=== PATIENT | male | born 1960 | race Two or more races ===

== ENCOUNTER 2020-03-02 18:32 | Inpatient (IN) | payer MEDICARE, MEDICAID ==
[~2020-03-02] VITALS: Ht 170.2 cm; Wt 95.2 kg
[2020-03-02 19:38] LABS: Basophils # (auto) 0 10 ^3/uL (0-0.2); Basophils % (auto) 0.7 % (0.0-2.0); Eosinophils # (auto) 0 10 ^3/uL (0-0.8); Hematocrit 29.5 % (41.0-53.0); Hemoglobin 9.5 g/dL (13.5-17.5); Lymphocytes # (auto) 0.5 10 ^3/uL (0.4-5.4); Lymphocytes % (auto) 16.6 % (10.0-50.0); Mean Corpuscular Hemoglobin 24.5 pg (28.0-32.0); Mean Corpuscular Hgb Conc. 32.3 g/dL (32.0-36.0); Monocytes # (auto) 0.4 10 ^3/uL (0-1.3); Neutrophils # (auto) 2.2 10 ^3/uL (1.6-8.6); Neutrophils % (auto) 70.7 % (37.0-80.0); Nucleated Red Blood Cells % 0.5 %; Red Blood Cells 3.88 10^6/uL (4.5-5.90); Red Cell Distribution Width 19.4 % (11.8-14.3); White Blood Cell 3.2 10^3/uL (4.4-10.8)
[2020-03-02 19:52] LABS: Albumin 2.5 g/dL (3.4-5.0); Calcium 7.3 mg/dL (8.5-10.1); Magnesium 2.3 mg/dL (1.6-2.6); Potassium 4.6 mmol/L (3.5-5.1)
[2020-03-02 19:59] LABS: BUN/Creatinine Ratio 14.8; Bilirubin, Total 0.7 mg/dL (0.2-1.0)
[2020-03-02 21:51] LABS: INR 2.77 (0.9-1.15)
[2020-03-02 22:02] LABS: Partial Thromboplastin Time 73.1 sec (23.0-31.2)
[2020-03-03] VITALS (8 sets, daily range): BP systolic 94–210; BP diastolic 60–118
[2020-03-03] MEDS ORDERED: LORazepam 2MG/ML-1ML VIAL ONE (01:54)
[2020-03-03] MEDS ORDERED: LORazepam 2MG/ML-1ML VIAL IV ONE (02:00)
[2020-03-03] MEDS ORDERED: ETOMIDATE (2MG/ML) 20ML VIAL IV ONE (02:11)
[2020-03-03] MEDS ORDERED: SUCCINYLCHOLINE CHLORIDE 20 MG/ML 10ML VIAL IV ONE (02:12)
[2020-03-03] MEDS: MIDAZOLAM DRIP 50 mg/50mL 50 ML IV SCH (02:45)
[2020-03-03] MEDS ORDERED: SODIUM BICARBONATE 8.4 % INJ 50ML VIAL IV ONE (04:30)
[2020-03-03] MEDS ORDERED: NITROGLYCERIN 0.4 MG SL TAB SL PRN (05:30)
[2020-03-03] MEDS ORDERED: MORPHINE SULFATE INJECTION 2 MG/ML SYRG IV PRN (05:30)
[2020-03-03] MEDS ORDERED: DEXTROSE (50%) 50ML SYRG IV PRN (05:30)
[2020-03-03] MEDS ORDERED: ONDANSETRON HCL 4 MG/2 ML VIAL IV PRN (05:30)
[2020-03-03] MEDS ORDERED: NOREPINEPHRINE 8 MG/250ML KIT 250 ML IV ONE (05:59)
[2020-03-03] MEDS: NOREPINEPHRINE 8 MG/250ML KIT 250 ML IV SCH (06:00)
[2020-03-03] MEDS: ACCU-CHEK COMFORT CURVE STRIP VI SCH ×3 (06:00→17:27)
[2020-03-03] MEDS ORDERED: ACETAMINOPHEN 650 MG RECT SUPP PR ONE (09:45)
[2020-03-03] MEDS: DOXYCYCLINE 100MG/250ML 250 ML IV SCH ×2 (09:49→18:43)
[2020-03-03] MEDS ORDERED: ENOXAPARIN SOD 40 MG/0.4 ML SYRINGE SC SCH (10:00)
[2020-03-03] MEDS: InsuLIN REG 1unit/0.01ml Soln (100units/ml) SC SCH ×3 (10:00→17:28)
[2020-03-03] MEDS ORDERED: ENOXAPARIN SOD 30 MG/0.3 ML SYRINGE SC SCH (10:00)
[2020-03-03] MEDS: ZINC SULFATE 220mg CAP or TAB PO SCH (10:01)
[2020-03-03] MEDS: PANTOPRAZOLE 40 MG/10 ML VIAL INJ IV SCH (10:01)
[2020-03-03] MEDS: DexAMETHasone SOD PHOS 10MG/1ML VIAL INJ IV SCH (10:01)
[2020-03-03] MEDS ORDERED: cefTRIAXone 1GM/50ML D5W 50 ML IV ONE (11:15)
[2020-03-03] MEDS ORDERED: FUROSEMIDE 40 MG/4 ML VIAL IV ONE (11:15)
[2020-03-03] MEDS ORDERED: REMDESIVIR PER PHARMACY 0 ML IV SCH ×2 (11:30→11:45)
[2020-03-03 11:43] LABS: Magnesium 2.3 mg/dL (1.6-2.6)
[2020-03-03 11:45] LABS: Lactic Acid w/Reflex 3.4 mmol/L (0.4-2.0)
[2020-03-03 12:11] LABS: CRP High Sensitivity 18.1 mg/dL (< 0.3)
[2020-03-03] MEDS: ALBUMIN 25% 100 ML IV SCH ×2 (12:38→20:23)
[2020-03-03 17:14] LABS: Urine Amorphous Crystal FEW /hpf (None Seen); Urine Bacteria FEW /hpf (None Seen); Urine Blood 3+ /uL (Negative); Urine Specific Gravity 1.015 (1.001-1.035); Urine Sperm PRESENT /hpf (None Seen); Urine WBC 1 /hpf (0 - 3)
[2020-03-03] MEDS ORDERED: fentaNYL Drip 2500mCg/250mlNS 250 ML IV ONE (18:20)
[2020-03-03] MEDS: fentaNYL Drip 2500mCg/250mlNS 250 ML IV SCH (18:30)
[2020-03-03 21:55] LABS: Basophils # (auto) 0 10 ^3/uL (0-0.2); Eosinophils # (auto) 0 10 ^3/uL (0-0.8); Lymphocytes # (auto) 0.6 10 ^3/uL (0.4-5.4)
[2020-03-03 21:58] LABS: Basophils % (auto) 0.2 % (0.0-2.0); Eosinophils % (auto) 0.1 % (0.0-7.0); Hematocrit 27.7 % (41.0-53.0); Lymphocytes % (auto) 4.8 % (10.0-50.0); Mean Corpuscular Hemoglobin 24.1 pg (28.0-32.0); Mean Corpuscular Hgb Conc. 32.5 g/dL (32.0-36.0); Mean Corpuscular Volume 74.3 fL (80.0-100.0); Monocytes # (auto) 0.5 10 ^3/uL (0-1.3); Neutrophils # (auto) 10.6 10 ^3/uL (1.6-8.6); Neutrophils % (auto) 90.9 % (37.0-80.0); Red Blood Cells 3.72 10^6/uL (4.5-5.90); Red Cell Distribution Width 19.5 % (11.8-14.3); White Blood Cell 11.6 10^3/uL (4.4-10.8)
[2020-03-03 22:16] LABS: BUN/Creatinine Ratio 14.2; Calcium 7.9 mg/dL (8.5-10.1); Potassium 4.7 mmol/L (3.5-5.1)
[2020-03-03 22:33] LABS: Partial Thromboplastin Time 89.6 sec (23.0-31.2)
[2020-03-03 22:34] LABS: INR 7.13 (0.9-1.15)
[2020-03-04] VITALS (9 sets, daily range): BP systolic 92–117; BP diastolic 55–66
[2020-03-04] MEDS: MIDAZOLAM DRIP 50 mg/50mL 50 ML IV SCH ×5 (00:15→23:30)
[2020-03-04] MEDS: ALBUMIN 25% 100 ML IV SCH (03:25)
[2020-03-04 05:47] LABS: Basophils # (auto) 0 10 ^3/uL (0-0.2); Eosinophils # (auto) 0 10 ^3/uL (0-0.8); Hemoglobin 8.9 g/dL (13.5-17.5); Monocytes # (auto) 0.4 10 ^3/uL (0-1.3)
[2020-03-04 05:50] LABS: Basophils % (auto) 0.1 % (0.0-2.0); Hematocrit 27.8 % (41.0-53.0); Lymphocytes # (auto) 0.6 10 ^3/uL (0.4-5.4); Mean Corpuscular Hgb Conc. 32.2 g/dL (32.0-36.0); Mean Corpuscular Volume 74.6 fL (80.0-100.0); Monocytes % (auto) 3.6 % (0.0-12.0); Neutrophils # (auto) 10.6 10 ^3/uL (1.6-8.6); Neutrophils % (auto) 91.3 % (37.0-80.0); Nucleated Red Blood Cells % 0.3 %; Red Blood Cells 3.72 10^6/uL (4.5-5.90); White Blood Cell 11.6 10^3/uL (4.4-10.8)
[2020-03-04] MEDS: NOREPINEPHRINE 8 MG/250ML KIT 250 ML IV SCH (06:00)
[2020-03-04] MEDS: ACCU-CHEK COMFORT CURVE STRIP VI SCH ×5 (06:00→17:15)
[2020-03-04] MEDS: InsuLIN REG 1unit/0.01ml Soln (100units/ml) SC SCH ×4 (06:00→17:16)
[2020-03-04 06:10] LABS: Potassium 4.8 mmol/L (3.5-5.1)
[2020-03-04 06:19] LABS: Albumin 2.5 g/dL (3.4-5.0); BUN/Creatinine Ratio 13.7; Bilirubin, Total 1.3 mg/dL (0.2-1.0); Calcium 7.9 mg/dL (8.5-10.1); INR 6.3 (0.9-1.15); Total Protein 7.2 g/dL (6.4-8.2)
[2020-03-04] MEDS: DOXYCYCLINE 100MG/250ML 250 ML IV SCH ×2 (06:39→17:15)
[2020-03-04] MEDS: cefTRIAXone 1GM/50ML D5W 50 ML IV SCH (09:41)
[2020-03-04] MEDS: DexAMETHasone SOD PHOS 10MG/1ML VIAL INJ IV SCH (09:42)
[2020-03-04] MEDS: PANTOPRAZOLE 40 MG/10 ML VIAL INJ IV SCH (09:42)
[2020-03-04] MEDS: ZINC SULFATE 220mg CAP or TAB PO SCH (09:42)
[2020-03-04] MEDS: fentaNYL Drip 2500mCg/250mlNS 250 ML IV SCH (16:23)
[2020-03-04] MEDS ORDERED: ALBUMIN 5% 250 ML IV ONE (19:00)
[2020-03-05] MEDS: InsuLIN REG 1unit/0.01ml Soln (100units/ml) SC SCH ×5 (01:27→23:35)
[2020-03-05 02:22] VITALS: BP 99/60
[2020-03-05] MEDS: MIDAZOLAM DRIP 50 mg/50mL 50 ML IV SCH ×4 (02:30→23:45)
[2020-03-05 05:45] LABS: Basophils # (auto) 0 10 ^3/uL (0-0.2); Basophils % (auto) 0.1 % (0.0-2.0); Eosinophils # (auto) 0 10 ^3/uL (0-0.8); Eosinophils % (auto) 0.1 % (0.0-7.0); Hemoglobin 8.8 g/dL (13.5-17.5); Lymphocytes # (auto) 0.5 10 ^3/uL (0.4-5.4); Mean Corpuscular Hemoglobin 24.2 pg (28.0-32.0); Mean Corpuscular Hgb Conc. 32.7 g/dL (32.0-36.0); Monocytes # (auto) 0.4 10 ^3/uL (0-1.3)
[2020-03-05 05:47] LABS: Hematocrit 26.8 % (41.0-53.0); Lymphocytes % (auto) 5.7 % (10.0-50.0); Monocytes % (auto) 4.2 % (0.0-12.0); Neutrophils # (auto) 7.8 10 ^3/uL (1.6-8.6); Neutrophils % (auto) 89.9 % (37.0-80.0); Nucleated Red Blood Cells % 0.4 %; Red Blood Cells 3.62 10^6/uL (4.5-5.90); Red Cell Distribution Width 19.9 % (11.8-14.3); White Blood Cell 8.7 10^3/uL (4.4-10.8)
[2020-03-05 05:48] LABS: Albumin 2.5 g/dL (3.4-5.0); Calcium 7.8 mg/dL (8.5-10.1); Potassium 5.2 mmol/L (3.5-5.1)
[2020-03-05 05:58] LABS: BUN/Creatinine Ratio 13.8; Bilirubin, Total 1.5 mg/dL (0.2-1.0); Total Protein 7.3 g/dL (6.4-8.2)
[2020-03-05 06:00] VITALS: BP 97/60
[2020-03-05] MEDS: NOREPINEPHRINE 8 MG/250ML KIT 250 ML IV SCH (06:00)
[2020-03-05] MEDS: ACCU-CHEK COMFORT CURVE STRIP VI SCH ×4 (06:00→23:36)
[2020-03-05] MEDS: DOXYCYCLINE 100MG/250ML 250 ML IV SCH ×2 (06:03→18:16)
[2020-03-05 06:10] LABS: INR > 8.0 (0.9-1.15); Partial Thromboplastin Time 111.5 sec (23.0-31.2)
[2020-03-05] MEDS: fentaNYL Drip 2500mCg/250mlNS 250 ML IV SCH ×2 (07:10→23:44)
[2020-03-05] MEDS ORDERED: SODIUM ZIRCONIUM CYCL 10 GM PAK GT ONE (09:45)
[2020-03-05] MEDS ORDERED: SODIUM BICARBONATE 8.4 % INJ 50ML VIAL IV ONE (09:45)
[2020-03-05] MEDS ORDERED: SODIUM BICARBONATE 50ML VIAL 100 ML in SOD CHL 0.45% 1,000 ML IV SCH (09:45)
[2020-03-05] MEDS: cefTRIAXone 1GM/50ML D5W 50 ML IV SCH (09:45)
[2020-03-05] MEDS: ZINC SULFATE 220mg CAP or TAB PO SCH (10:00)
[2020-03-05] MEDS ORDERED: ALBUTEROL SULF 2.5 MG/0.5ML(0.5%) NEB SOLN NEB ONE (10:00)
[2020-03-05] MEDS ORDERED: InsuLIN REG 1unit/0.01ml Soln (100units/ml) IV ONE (10:00)
[2020-03-05 10:04] VITALS: BP 102/63
[2020-03-05] MEDS: DexAMETHasone SOD PHOS 10MG/1ML VIAL INJ IV SCH (10:25)
[2020-03-05] MEDS ORDERED: PHYTONADIONE (VIT K)10 MG/ML 1ML VIAL SUBCUT ONE (10:30)
[2020-03-05] MEDS: PANTOPRAZOLE 40 MG/10 ML VIAL INJ IV SCH ×2 (10:30→22:49)
[2020-03-05] MEDS ORDERED: phytonadione 10 MG in SODIUM CHL 0.9% 50 ML IV ONE (11:30)
[2020-03-05] MEDS: SODIUM BICARBONATE 50ML VIAL 150 ML in D5W 5% 1,000 ML IV SCH ×2 (11:41→20:27)
[2020-03-05] MEDS ORDERED: FUROSEMIDE 20 MG/2 ML VIAL IV ONE (12:00)
[2020-03-05 13:24] LABS: Albumin 2.4 g/dL (3.4-5.0); Calcium 7.6 mg/dL (8.5-10.1); Potassium 4.7 mmol/L (3.5-5.1)
[2020-03-05 13:36] LABS: BUN/Creatinine Ratio 14.5; Bilirubin, Total 1.5 mg/dL (0.2-1.0); Total Protein 7.2 g/dL (6.4-8.2)
[2020-03-05 14:00] VITALS: BP 111/66
[2020-03-05] MEDS: SODIUM ZIRCONIUM CYCL 10 GM PAK GT SCH (18:15)
[2020-03-05 19:29] VITALS: BP 125/70
[2020-03-05 22:39] VITALS: BP 116/70
[2020-03-06] VITALS (8 sets, daily range): BP systolic 128–145; BP diastolic 73–86
[2020-03-06] MEDS: NOREPINEPHRINE 8 MG/250ML KIT 250 ML IV SCH (02:06)
[2020-03-06] MEDS: SODIUM ZIRCONIUM CYCL 10 GM PAK GT SCH ×2 (02:48→09:39)
[2020-03-06 04:27] LABS: Basophils # (auto) 0 10 ^3/uL (0-0.2); Eosinophils # (auto) 0 10 ^3/uL (0-0.8); Eosinophils % (auto) 0.1 % (0.0-7.0); Nucleated Red Blood Cells % 0.2 %
[2020-03-06 04:54] LABS: INR 1.43 (0.9-1.15); Partial Thromboplastin Time 45.3 sec (23.0-31.2)
[2020-03-06 04:57] LABS: Basophils % (auto) 0.1 % (0.0-2.0); Hematocrit 24.2 % (41.0-53.0); Hemoglobin 8.1 g/dL (13.5-17.5); Lymphocytes # (auto) 0.2 10 ^3/uL (0.4-5.4); Lymphocytes % (auto) 2.1 % (10.0-50.0); Mean Corpuscular Hemoglobin 24.5 pg (28.0-32.0); Mean Corpuscular Hgb Conc. 33.4 g/dL (32.0-36.0); Mean Corpuscular Volume 73.5 fL (80.0-100.0); Monocytes # (auto) 0.4 10 ^3/uL (0-1.3); Monocytes % (auto) 4.5 % (0.0-12.0); Neutrophils # (auto) 8.2 10 ^3/uL (1.6-8.6); Neutrophils % (auto) 93.2 % (37.0-80.0); Red Blood Cells 3.29 10^6/uL (4.5-5.90); Red Cell Distribution Width 19.7 % (11.8-14.3); White Blood Cell 8.8 10^3/uL (4.4-10.8)
[2020-03-06] MEDS: DOXYCYCLINE 100MG/250ML 250 ML IV SCH ×2 (05:05→18:24)
[2020-03-06 05:10] LABS: Potassium 4.5 mmol/L (3.5-5.1)
[2020-03-06 05:20] LABS: Albumin 2.4 g/dL (3.4-5.0); BUN/Creatinine Ratio 16.8; Bilirubin, Total 1.6 mg/dL (0.2-1.0); Calcium 7.8 mg/dL (8.5-10.1); Total Protein 7.3 g/dL (6.4-8.2)
[2020-03-06] MEDS: ACCU-CHEK COMFORT CURVE STRIP VI SCH ×3 (06:30→18:24)
[2020-03-06] MEDS: InsuLIN REG 1unit/0.01ml Soln (100units/ml) SC SCH ×3 (06:30→23:54)
[2020-03-06] MEDS: cefTRIAXone 1GM/50ML D5W 50 ML IV SCH (09:00)
[2020-03-06] MEDS: SODIUM BICARBONATE 50ML VIAL 150 ML in D5W 5% 1,000 ML IV SCH ×2 (09:38→20:52)
[2020-03-06] MEDS: PANTOPRAZOLE 40 MG/10 ML VIAL INJ IV SCH ×2 (09:39→22:00)
[2020-03-06] MEDS: ZINC SULFATE 220mg CAP or TAB PO SCH (09:39)
[2020-03-06] MEDS ORDERED: HEPARIN SODIUM (PORCINE) 5000 UNITS/ML 1ML VIAL IV ONE (15:00)
[2020-03-06 17:59] LABS: Basophils # (auto) 0 10 ^3/uL (0-0.2); Basophils % (auto) 0.1 % (0.0-2.0); Eosinophils # (auto) 0 10 ^3/uL (0-0.8); Hemoglobin 8.2 g/dL (13.5-17.5); Lymphocytes # (auto) 0.4 10 ^3/uL (0.4-5.4); Monocytes # (auto) 0.4 10 ^3/uL (0-1.3); Neutrophils # (auto) 8.5 10 ^3/uL (1.6-8.6); White Blood Cell 9.3 10^3/uL (4.4-10.8)
[2020-03-06] MEDS: HEPARIN DRIP/D5W 100UNITS/ML 250 ML IV SCH (18:00)
[2020-03-06 18:01] LABS: Lymphocytes % (auto) 4.6 % (10.0-50.0); Mean Corpuscular Hemoglobin 24.3 pg (28.0-32.0); Mean Corpuscular Hgb Conc. 32.8 g/dL (32.0-36.0); Monocytes % (auto) 4.3 % (0.0-12.0); Nucleated Red Blood Cells % 0.3 %; Red Blood Cells 3.39 10^6/uL (4.5-5.90); Red Cell Distribution Width 19.8 % (11.8-14.3)
[2020-03-07] VITALS (46 sets, daily range): BP systolic 99–156; BP diastolic 7–78
[2020-03-07] MEDS: ACETAMINOPHEN 325 MG TAB PO PRN (01:05)
[2020-03-07 01:20] LABS: INR 1.56 (0.9-1.15)
[2020-03-07 01:22] LABS: Partial Thromboplastin Time 125.5 sec (23.0-31.2)
[2020-03-07] MEDS: MIDAZOLAM DRIP 50 mg/50mL 50 ML IV SCH ×4 (04:11→22:00)
[2020-03-07] MEDS: HEPARIN DRIP/D5W 100UNITS/ML 250 ML IV SCH ×2 (04:58→16:50)
[2020-03-07] MEDS: NOREPINEPHRINE 8 MG/250ML KIT 250 ML IV SCH (06:00)
[2020-03-07] MEDS: InsuLIN REG 1unit/0.01ml Soln (100units/ml) SC SCH ×3 (06:23→18:22)
[2020-03-07] MEDS: ACCU-CHEK COMFORT CURVE STRIP VI SCH ×4 (06:24→18:20)
[2020-03-07] MEDS: DOXYCYCLINE 100MG/250ML 250 ML IV SCH ×2 (06:59→18:20)
[2020-03-07 07:50] LABS: Basophils # (auto) 0 10 ^3/uL (0-0.2); Eosinophils # (auto) 0 10 ^3/uL (0-0.8); Mean Corpuscular Hemoglobin 24.5 pg (28.0-32.0); Nucleated Red Blood Cells % 0.6 %
[2020-03-07 07:52] LABS: Hematocrit 24.3 % (41.0-53.0); Lymphocytes # (auto) 0.4 10 ^3/uL (0.4-5.4); Lymphocytes % (auto) 4.5 % (10.0-50.0); Mean Corpuscular Hgb Conc. 33.1 g/dL (32.0-36.0); Mean Corpuscular Volume 74.1 fL (80.0-100.0); Monocytes # (auto) 0.4 10 ^3/uL (0-1.3); Monocytes % (auto) 4.7 % (0.0-12.0); Neutrophils # (auto) 8.7 10 ^3/uL (1.6-8.6); Neutrophils % (auto) 90.8 % (37.0-80.0); Red Blood Cells 3.28 10^6/uL (4.5-5.90); Red Cell Distribution Width 19.5 % (11.8-14.3); White Blood Cell 9.6 10^3/uL (4.4-10.8)
[2020-03-07 08:15] LABS: INR 1.59 (0.9-1.15); Partial Thromboplastin Time 69.7 sec (23.0-31.2)
[2020-03-07 08:19] LABS: BUN/Creatinine Ratio 20.4; Bilirubin, Total 2.9 mg/dL (0.2-1.0); Total Protein 7.1 g/dL (6.4-8.2)
[2020-03-07] MEDS: cefTRIAXone 1GM/50ML D5W 50 ML IV SCH (09:09)
[2020-03-07] MEDS: ZINC SULFATE 220mg CAP or TAB PO SCH (10:00)
[2020-03-07] MEDS: PANTOPRAZOLE 40 MG/10 ML VIAL INJ IV SCH ×2 (10:00→22:30)
[2020-03-07] MEDS: fentaNYL Drip 2500mCg/250mlNS 250 ML IV SCH ×2 (11:34→21:25)
[2020-03-07] MEDS: SODIUM CHLORIDE 0.9% 1,000 ML IV SCH ×2 (12:13→21:01)
[2020-03-07 15:38] LABS: INR 1.67 (0.9-1.15)
[2020-03-07 15:56] LABS: Partial Thromboplastin Time 74.3 sec (23.0-31.2)
[2020-03-07 21:51] LABS: INR 1.76 (0.9-1.15)
[2020-03-07 21:56] LABS: Partial Thromboplastin Time > 139.0 sec (23.0-31.2)
[2020-03-08] MEDS: ACCU-CHEK COMFORT CURVE STRIP VI SCH ×5 (00:11→23:25)
[2020-03-08] MEDS: InsuLIN REG 1unit/0.01ml Soln (100units/ml) SC SCH ×5 (00:14→23:25)
[2020-03-08 02:00] VITALS: BP 145/74
[2020-03-08] MEDS: MIDAZOLAM DRIP 50 mg/50mL 50 ML IV SCH ×3 (02:25→20:39)
[2020-03-08] MEDS: NOREPINEPHRINE 8 MG/250ML KIT 250 ML IV SCH ×2 (03:55→23:49)
[2020-03-08] MEDS: SODIUM CHLORIDE 0.9% 1,000 ML IV SCH ×2 (04:13→11:17)
[2020-03-08] MEDS: hydrALAZINE HCL 20 MG/ML VL IV PRN (04:19)
[2020-03-08 05:31] LABS: Red Blood Cells 3.64 10^6/uL (4.5-5.90); White Blood Cell 9.3 10^3/uL (4.4-10.8)
[2020-03-08 05:33] LABS: Hematocrit 26.9 % (41.0-53.0); Mean Corpuscular Hemoglobin 24.8 pg (28.0-32.0); Mean Corpuscular Hgb Conc. 33.5 g/dL (32.0-36.0); Red Cell Distribution Width 19.8 % (11.8-14.3)
[2020-03-08 05:42] LABS: Basophils % (manual) 0 (0.0-2.0); Blast Cells 0; Eosinophils % (manual) 0 (0-7); Metamyelocytes % 0; Myelocytes % 0; Promyelocytes % 0; Reactive Lymphocytes 0
[2020-03-08] MEDS: ACETAMINOPHEN 325 MG TAB PO PRN ×2 (05:43→20:40)
[2020-03-08] MEDS: HEPARIN DRIP/D5W 100UNITS/ML 250 ML IV SCH ×3 (05:57→23:46)
[2020-03-08 05:58] LABS: Calcium 8.2 mg/dL (8.5-10.1); Potassium 4.1 mmol/L (3.5-5.1)
[2020-03-08 06:00] LABS: BUN/Creatinine Ratio 22.4
[2020-03-08 06:20] LABS: INR 1.74 (0.9-1.15)
[2020-03-08 07:10] VITALS: BP 126/68
[2020-03-08 07:50] LABS: Band Neutrophils % (manual) 1; Lymphocytes % (manual) 2 (10.0-50.0); Monocytes % (manual) 3 (0-12)
[2020-03-08] MEDS: cefTRIAXone 1GM/50ML D5W 50 ML IV SCH (08:54)
[2020-03-08] MEDS: PANTOPRAZOLE 40 MG/10 ML VIAL INJ IV SCH ×2 (10:00→20:39)
[2020-03-08] MEDS: ZINC SULFATE 220mg CAP or TAB PO SCH (10:00)
[2020-03-08] MEDS ORDERED: Glucerna 1.2 Cal 1Liter BOTTLE GT SCH (11:00)
[2020-03-08] MEDS: FREE WATER GT SCH ×3 (12:00→23:18)
[2020-03-08 14:14] VITALS: BP 133/71
[2020-03-08 18:28] VITALS: BP 128/68
[2020-03-08 22:35] VITALS: BP 116/65
[2020-03-09 02:24] VITALS: BP 117/63
[2020-03-09] MEDS: ACCU-CHEK COMFORT CURVE STRIP VI SCH ×3 (05:32→18:10)
[2020-03-09] MEDS: FREE WATER GT SCH ×4 (05:32→22:54)
[2020-03-09] MEDS: InsuLIN REG 1unit/0.01ml Soln (100units/ml) SC SCH ×4 (05:33→23:11)
[2020-03-09 05:50] VITALS: BP 130/72
[2020-03-09] MEDS ORDERED: dilTIAZem 25 MG/5 ML VIAL IV ONE (06:45)
[2020-03-09] MEDS: SODIUM CHLORIDE 0.9% 1,000 ML IV SCH (07:00)
[2020-03-09 07:20] LABS: White Blood Cell 7.2 10^3/uL (4.4-10.8)
[2020-03-09 07:23] LABS: Hematocrit 26.1 % (41.0-53.0); Hemoglobin 8.5 g/dL (13.5-17.5); Mean Corpuscular Hemoglobin 24.4 pg (28.0-32.0); Mean Corpuscular Hgb Conc. 32.7 g/dL (32.0-36.0); Mean Corpuscular Volume 74.7 fL (80.0-100.0); Red Blood Cells 3.49 10^6/uL (4.5-5.90)
[2020-03-09 07:34] LABS: INR 2.51 (0.9-1.15); Partial Thromboplastin Time 50.2 sec (23.0-31.2)
[2020-03-09 07:37] LABS: Potassium 3.9 mmol/L (3.5-5.1)
[2020-03-09 07:42] LABS: Red Cell Distribution Width 20.1 % (11.8-14.3)
[2020-03-09 07:44] LABS: Basophils % (manual) 0 (0.0-2.0); Blast Cells 0; Eosinophils % (manual) 0 (0-7); Promyelocytes % 0; Reactive Lymphocytes 0
[2020-03-09 07:45] LABS: BUN/Creatinine Ratio 24.7; Calcium 8.4 mg/dL (8.5-10.1)
[2020-03-09 08:16] LABS: Band Neutrophils % (manual) 1; Lymphocytes % (manual) 9 (10.0-50.0); Metamyelocytes % 2; Monocytes % (manual) 1 (0-12); Myelocytes % 1
[2020-03-09] MEDS: PANTOPRAZOLE 40 MG/10 ML VIAL INJ IV SCH ×2 (09:01→21:24)
[2020-03-09] MEDS: cefTRIAXone 1GM/50ML D5W 50 ML IV SCH (09:01)
[2020-03-09] MEDS: ZINC SULFATE 220mg CAP or TAB PO SCH (09:01)
[2020-03-09] MEDS ORDERED: NOREPINEPHRINE 8 MG/250ML KIT 250 ML IV ONE ×2 (10:20→10:23)
[2020-03-09] MEDS: NOREPINEPHRINE 8 MG/250ML KIT 250 ML IV SCH (10:30)
[2020-03-09] MEDS ORDERED: AMIODARONE HCL (50 MG/ ML) 3 ML VIAL IV ONE ×2 (10:33)
[2020-03-09] MEDS ORDERED: AMIODARONE 450mg/250ml AE 250 ML IV ONE (10:33)
[2020-03-09 13:22] VITALS: BP 128/74
[2020-03-09 17:46] LABS: INR 2.46 (0.9-1.15)
[2020-03-09 18:10] VITALS: BP 100/57
[2020-03-09] MEDS: fentaNYL Drip 2500mCg/250mlNS 250 ML IV SCH (18:22)
[2020-03-09] MEDS ORDERED: AMIODARONE HCL 150 MG in D5W 5% 100 ML IV ONE (18:45)
[2020-03-09] MEDS ORDERED: AMIODARONE 450mg/250ml AE 250 ML IV SCH (18:45)
[2020-03-09 21:54] LABS: INR 2.87 (0.9-1.15)
[2020-03-09 22:20] VITALS: BP 126/48
[2020-03-09] MEDS: ACETAMINOPHEN 325 MG TAB PO PRN (22:54)
[2020-03-10] MEDS: ACCU-CHEK COMFORT CURVE STRIP VI SCH ×5 (00:29→23:53)
[2020-03-10] MEDS: MIDAZOLAM DRIP 50 mg/50mL 50 ML IV SCH (00:29)
[2020-03-10] MEDS: AMIODARONE 450mg/250ml AE 250 ML IV SCH ×2 (00:29→18:30)
[2020-03-10] MEDS: SODIUM CHLORIDE 0.9% 1,000 ML IV SCH ×2 (00:30→23:18)
[2020-03-10] MEDS: HEPARIN DRIP/D5W 100UNITS/ML 250 ML IV SCH ×2 (00:30→11:30)
[2020-03-10 01:55] VITALS: BP 147/61
[2020-03-10 04:45] LABS: Hemoglobin 8.1 g/dL (13.5-17.5); Red Blood Cells 3.32 10^6/uL (4.5-5.90)
[2020-03-10 04:50] LABS: Hematocrit 24.7 % (41.0-53.0); Mean Corpuscular Hemoglobin 24.4 pg (28.0-32.0); Mean Corpuscular Hgb Conc. 32.8 g/dL (32.0-36.0); Mean Corpuscular Volume 74.4 fL (80.0-100.0); White Blood Cell 9.3 10^3/uL (4.4-10.8)
[2020-03-10] MEDS: FREE WATER GT SCH ×4 (05:03→23:54)
[2020-03-10] MEDS: InsuLIN REG 1unit/0.01ml Soln (100units/ml) SC SCH ×3 (05:04→23:54)
[2020-03-10 05:06] LABS: INR 3.24 (0.9-1.15); Partial Thromboplastin Time 50.2 sec (23.0-31.2)
[2020-03-10 05:12] LABS: Potassium 4.1 mmol/L (3.5-5.1)
[2020-03-10 05:18] LABS: Albumin 1.7 g/dL (3.4-5.0); Bilirubin, Total 8.2 mg/dL (0.2-1.0); Calcium 8.7 mg/dL (8.5-10.1)
[2020-03-10 06:04] LABS: Red Cell Distribution Width 20.3 % (11.8-14.3)
[2020-03-10 06:05] VITALS: BP 134/66
[2020-03-10 06:05] LABS: Basophils % (manual) 0 (0.0-2.0); Blast Cells 0; Metamyelocytes % 0; Myelocytes % 0; Promyelocytes % 0; Reactive Lymphocytes 0
[2020-03-10 08:36] LABS: Band Neutrophils % (manual) 10; Eosinophils % (manual) 1 (0-7); Lymphocytes % (manual) 7 (10.0-50.0); Monocytes % (manual) 4 (0-12)
[2020-03-10] MEDS: ZINC SULFATE 220mg CAP or TAB PO SCH (11:53)
[2020-03-10] MEDS: PANTOPRAZOLE 40 MG/10 ML VIAL INJ IV SCH ×2 (11:53→22:11)
[2020-03-10] MEDS: cefTRIAXone 1GM/50ML D5W 50 ML IV SCH (11:53)
[2020-03-10 15:36] VITALS: BP 122/59
[2020-03-10] MEDS: fentaNYL Drip 2500mCg/250mlNS 250 ML IV SCH (18:15)
[2020-03-10 18:40] VITALS: BP 126/65
[2020-03-10] MEDS: NOREPINEPHRINE 8 MG/250ML KIT 250 ML IV SCH (18:45)
[2020-03-10 22:10] VITALS: BP 116/62
[2020-03-10] MEDS: METOCLOPRAMIDE HCL 5MG/ml INJ 2ml VIAL IV SCH (22:11)
[2020-03-11 02:10] VITALS: BP 116/53
[2020-03-11] MEDS: MIDAZOLAM DRIP 50 mg/50mL 50 ML IV SCH ×3 (02:21→17:40)
[2020-03-11 05:51] VITALS: BP 128/67
[2020-03-11 06:01] LABS: Basophils # (auto) 0 10 ^3/uL (0-0.2); Basophils % (auto) 0.4 % (0.0-2.0); Eosinophils # (auto) 0.1 10 ^3/uL (0-0.8); Eosinophils % (auto) 1.3 % (0.0-7.0); Hematocrit 22.6 % (41.0-53.0); Hemoglobin 7.5 g/dL (13.5-17.5); Lymphocytes # (auto) 0.7 10 ^3/uL (0.4-5.4); Lymphocytes % (auto) 6.8 % (10.0-50.0); Mean Corpuscular Hemoglobin 24.6 pg (28.0-32.0); Mean Corpuscular Hgb Conc. 33.2 g/dL (32.0-36.0); Monocytes # (auto) 0.6 10 ^3/uL (0-1.3); Monocytes % (auto) 5.7 % (0.0-12.0); Neutrophils # (auto) 8.8 10 ^3/uL (1.6-8.6); Neutrophils % (auto) 85.8 % (37.0-80.0); Nucleated Red Blood Cells % 0.2 %; Red Blood Cells 3.06 10^6/uL (4.5-5.90); Red Cell Distribution Width 19.9 % (11.8-14.3); White Blood Cell 10.3 10^3/uL (4.4-10.8)
[2020-03-11] MEDS: ACCU-CHEK COMFORT CURVE STRIP VI SCH ×3 (06:05→18:12)
[2020-03-11] MEDS: METOCLOPRAMIDE HCL 5MG/ml INJ 2ml VIAL IV SCH ×3 (06:05→22:46)
[2020-03-11 06:06] LABS: Albumin 1.5 g/dL (3.4-5.0); Calcium 8.5 mg/dL (8.5-10.1); Potassium 4.5 mmol/L (3.5-5.1)
[2020-03-11 06:09] LABS: BUN/Creatinine Ratio 26.8; Bilirubin, Total 6.7 mg/dL (0.2-1.0); Total Protein 6.8 g/dL (6.4-8.2)
[2020-03-11] MEDS: HEPARIN DRIP/D5W 100UNITS/ML 250 ML IV SCH ×2 (06:12→20:06)
[2020-03-11] MEDS: FREE WATER GT SCH ×3 (06:13→18:11)
[2020-03-11] MEDS: InsuLIN REG 1unit/0.01ml Soln (100units/ml) SC SCH ×3 (06:13→18:12)
[2020-03-11 07:06] LABS: INR 3.56 (0.9-1.15); Partial Thromboplastin Time 67.8 sec (23.0-31.2)
[2020-03-11] MEDS: AMIODARONE 450mg/250ml AE 250 ML IV SCH ×2 (08:39→21:45)
[2020-03-11] MEDS ORDERED: SODIUM CHL 0.9% 1000 ML BAG XX ONE (10:00)
[2020-03-11] MEDS: cefTRIAXone 1GM/50ML D5W 50 ML IV SCH (10:17)
[2020-03-11] MEDS: PANTOPRAZOLE 40 MG/10 ML VIAL INJ IV SCH ×2 (10:18→22:46)
[2020-03-11] MEDS: DexAMETHasone SOD PHOS 10MG/1ML VIAL INJ IV SCH (10:18)
[2020-03-11] MEDS: ZINC SULFATE 220mg CAP or TAB PO SCH (10:18)
[2020-03-11] MEDS: ACETAMINOPHEN 325 MG TAB PO PRN (17:57)
[2020-03-11 18:10] VITALS: BP 125/70
[2020-03-11] MEDS: NOREPINEPHRINE 8 MG/250ML KIT 250 ML IV SCH (18:45)
[2020-03-11 22:10] VITALS: BP 107/62
[2020-03-12] VITALS (9 sets, daily range): BP systolic 103–133; BP diastolic 52–66
[2020-03-12] MEDS: ACCU-CHEK COMFORT CURVE STRIP VI SCH ×4 (00:53→18:00)
[2020-03-12] MEDS: InsuLIN REG 1unit/0.01ml Soln (100units/ml) SC SCH ×4 (00:59→18:00)
[2020-03-12 05:23] LABS: Basophils # (auto) 0.1 10 ^3/uL (0-0.2); Eosinophils # (auto) 0.1 10 ^3/uL (0-0.8); Mean Corpuscular Volume 74.3 fL (80.0-100.0); Nucleated Red Blood Cells % 0.1 %
[2020-03-12 05:25] LABS: Basophils % (auto) 0.8 % (0.0-2.0); Eosinophils % (auto) 1.1 % (0.0-7.0); Hematocrit 19.7 % (41.0-53.0); Lymphocytes # (auto) 0.9 10 ^3/uL (0.4-5.4); Lymphocytes % (auto) 7.8 % (10.0-50.0); Mean Corpuscular Hgb Conc. 32.3 g/dL (32.0-36.0); Monocytes # (auto) 0.6 10 ^3/uL (0-1.3); Monocytes % (auto) 5.6 % (0.0-12.0); Neutrophils # (auto) 9.5 10 ^3/uL (1.6-8.6); Neutrophils % (auto) 84.7 % (37.0-80.0); Red Blood Cells 2.66 10^6/uL (4.5-5.90); Red Cell Distribution Width 19.7 % (11.8-14.3); White Blood Cell 11.2 10^3/uL (4.4-10.8)
[2020-03-12 05:42] LABS: Hemoglobin 6.4 g/dL (13.5-17.5)
[2020-03-12 05:43] LABS: Albumin 1.4 g/dL (3.4-5.0); Calcium 8.2 mg/dL (8.5-10.1); Potassium 4.7 mmol/L (3.5-5.1)
[2020-03-12 05:45] LABS: BUN/Creatinine Ratio 27.6
[2020-03-12] MEDS: FREE WATER GT SCH ×4 (05:47→18:00)
[2020-03-12 05:48] LABS: Bilirubin, Total 4.4 mg/dL (0.2-1.0); Total Protein 6.9 g/dL (6.4-8.2)
[2020-03-12 06:08] LABS: Partial Thromboplastin Time 51.1 sec (23.0-31.2)
[2020-03-12] MEDS: METOCLOPRAMIDE HCL 5MG/ml INJ 2ml VIAL IV SCH ×3 (06:08→22:00)
[2020-03-12 06:30] LABS: INR 4.26 (0.9-1.15)
[2020-03-12] MEDS: cefTRIAXone 1GM/50ML D5W 50 ML IV SCH (09:00)
[2020-03-12] MEDS: MIDAZOLAM DRIP 50 mg/50mL 50 ML IV SCH (09:46)
[2020-03-12] MEDS: PANTOPRAZOLE 40 MG/10 ML VIAL INJ IV SCH ×2 (09:52→22:00)
[2020-03-12] MEDS: ZINC SULFATE 220mg CAP or TAB PO SCH (09:52)
[2020-03-12] MEDS: DexAMETHasone SOD PHOS 10MG/1ML VIAL INJ IV SCH (09:52)
[2020-03-12] MEDS: HEPARIN DRIP/D5W 100UNITS/ML 250 ML IV SCH ×2 (10:00→23:54)
[2020-03-12 10:34] LABS: Hepatitis A Ab IgM Negative; Hepatitis B Core IgM Negative; Hepatitis B Surface Antigen Negative (Negative)
[2020-03-12 10:35] LABS: Hepatitis C Antibody Reactive (Negative)
[2020-03-12] MEDS: AMIODARONE 450mg/250ml AE 250 ML IV SCH (12:45)
[2020-03-12] MEDS: fentaNYL Drip 2500mCg/250mlNS 250 ML IV SCH (18:15)
[2020-03-13] VITALS (11 sets, daily range): BP systolic 130–155; BP diastolic 56–74
[2020-03-13] MEDS: InsuLIN REG 1unit/0.01ml Soln (100units/ml) SC SCH ×4 (00:05→18:00)
[2020-03-13] MEDS: AMIODARONE 450mg/250ml AE 250 ML IV SCH (05:16)
[2020-03-13] MEDS: ACCU-CHEK COMFORT CURVE STRIP VI SCH ×4 (06:00→18:00)
[2020-03-13] MEDS: FREE WATER GT SCH ×3 (06:00→12:00)
[2020-03-13] MEDS: METOCLOPRAMIDE HCL 5MG/ml INJ 2ml VIAL IV SCH ×3 (06:25→22:11)
[2020-03-13] MEDS: fentaNYL Drip 2500mCg/250mlNS 250 ML IV SCH ×2 (06:47→23:00)
[2020-03-13 06:48] LABS: Basophils # (auto) 0 10 ^3/uL (0-0.2); Basophils % (auto) 0.3 % (0.0-2.0); Eosinophils # (auto) 0 10 ^3/uL (0-0.8); Lymphocytes # (auto) 0.6 10 ^3/uL (0.4-5.4); Mean Corpuscular Hemoglobin 24.8 pg (28.0-32.0); Monocytes # (auto) 0.5 10 ^3/uL (0-1.3); Monocytes % (auto) 3.8 % (0.0-12.0)
[2020-03-13 06:52] LABS: Hematocrit 21.3 % (41.0-53.0); Lymphocytes % (auto) 5.2 % (10.0-50.0); Mean Corpuscular Hgb Conc. 32.6 g/dL (32.0-36.0); Mean Corpuscular Volume 76.1 fL (80.0-100.0); Neutrophils # (auto) 11.2 10 ^3/uL (1.6-8.6); Neutrophils % (auto) 90.7 % (37.0-80.0); Red Cell Distribution Width 19.9 % (11.8-14.3); White Blood Cell 12.3 10^3/uL (4.4-10.8)
[2020-03-13 07:00] LABS: Potassium 5.5 mmol/L (3.5-5.1)
[2020-03-13 07:01] LABS: Partial Thromboplastin Time 47.8 sec (23.0-31.2)
[2020-03-13 07:08] LABS: Albumin 1.4 g/dL (3.4-5.0); BUN/Creatinine Ratio 29.1; Bilirubin, Total 3.2 mg/dL (0.2-1.0); Calcium 8.8 mg/dL (8.5-10.1); Total Protein 7.6 g/dL (6.4-8.2)
[2020-03-13 07:15] LABS: INR 4.27 (0.9-1.15)
[2020-03-13 07:30] LABS: Hemoglobin 6.9 g/dL (13.5-17.5)
[2020-03-13] MEDS: MIDAZOLAM DRIP 50 mg/50mL 50 ML IV SCH (08:29)
[2020-03-13] MEDS ORDERED: SODIUM BICARBONATE 8.4% INJ 50ML SYRINGE IV ONE (09:00)
[2020-03-13] MEDS ORDERED: ALBUTEROL SULF 2.5 MG/0.5ML(0.5%) NEB SOLN NEB ONE (09:00)
[2020-03-13] MEDS ORDERED: SODIUM ZIRCONIUM CYCL 10 GM PAK GT ONE (09:00)
[2020-03-13] MEDS ORDERED: INSULIN LANTUS (GLARGINE) 1 /0.01ml (100units/ml) SC SCH (09:00)
[2020-03-13] MEDS: D5W 5% 1,000 ML IV SCH ×2 (09:00→19:02)
[2020-03-13] MEDS: cefTRIAXone 1GM/50ML D5W 50 ML IV SCH (09:00)
[2020-03-13] MEDS ORDERED: InsuLIN REG 1unit/0.01ml Soln (100units/ml) IV ONE (09:00)
[2020-03-13] MEDS ORDERED: FUROSEMIDE 40 MG/4 ML VIAL IV ONE (09:15)
[2020-03-13] MEDS: ZINC SULFATE 220mg CAP or TAB PO SCH (10:00)
[2020-03-13] MEDS: PANTOPRAZOLE 40 MG/10 ML VIAL INJ IV SCH ×2 (10:00→22:11)
[2020-03-13] MEDS: SODIUM ZIRCONIUM CYCL 10 GM PAK GT SCH ×2 (14:00→22:10)
[2020-03-13] MEDS ORDERED: AMIODARONE 450mg/250ml AE 250 ML IV ONE (18:40)
[2020-03-14] VITALS (8 sets, daily range): BP systolic 117–146; BP diastolic 48–70
[2020-03-14] MEDS: METOPROLOL TARTRATE 25 MG TAB GT SCH ×3 (00:15→22:00)
[2020-03-14] MEDS: InsuLIN REG 1unit/0.01ml Soln (100units/ml) SC SCH ×5 (00:22→20:35)
[2020-03-14] MEDS: ACCU-CHEK COMFORT CURVE STRIP VI SCH ×5 (00:30→20:30)
[2020-03-14] MEDS: D5W 5% 1,000 ML IV SCH (05:15)
[2020-03-14] MEDS: SODIUM ZIRCONIUM CYCL 10 GM PAK GT SCH ×3 (07:10→22:00)
[2020-03-14] MEDS: METOCLOPRAMIDE HCL 5MG/ml INJ 2ml VIAL IV SCH ×3 (07:10→22:00)
[2020-03-14] MEDS: MIDAZOLAM DRIP 50 mg/50mL 50 ML IV SCH (07:30)
[2020-03-14] MEDS: NOREPINEPHRINE 8 MG/250ML KIT 250 ML IV SCH ×3 (09:23→18:45)
[2020-03-14] MEDS ORDERED: AMIODARONE 450mg/250ml AE 250 ML IV ONE (09:42)
[2020-03-14] MEDS: ZINC SULFATE 220mg CAP or TAB PO SCH (09:43)
[2020-03-14] MEDS: INSULIN LANTUS (GLARGINE) 1 /0.01ml (100units/ml) SC SCH ×2 (09:43→22:00)
[2020-03-14] MEDS: PANTOPRAZOLE 40 MG/10 ML VIAL INJ IV SCH ×2 (09:43→23:55)
[2020-03-14 10:11] LABS: Basophils # (auto) 0 10 ^3/uL (0-0.2); Basophils % (auto) 0.2 % (0.0-2.0); Eosinophils # (auto) 0 10 ^3/uL (0-0.8); Hemoglobin 9.3 g/dL (13.5-17.5); Lymphocytes % (auto) 4.8 % (10.0-50.0); Monocytes # (auto) 0.8 10 ^3/uL (0-1.3)
[2020-03-14 10:14] LABS: Hematocrit 28.7 % (41.0-53.0); Lymphocytes # (auto) 0.7 10 ^3/uL (0.4-5.4); Mean Corpuscular Hgb Conc. 32.5 g/dL (32.0-36.0); Mean Corpuscular Volume 79.9 fL (80.0-100.0); Neutrophils # (auto) 13.9 10 ^3/uL (1.6-8.6); Red Blood Cells 3.59 10^6/uL (4.5-5.90); White Blood Cell 15.5 10^3/uL (4.4-10.8)
[2020-03-14 10:16] LABS: Red Cell Distribution Width 21.3 % (11.8-14.3)
[2020-03-14 10:28] LABS: Albumin 1.6 g/dL (3.4-5.0); Calcium 8.6 mg/dL (8.5-10.1)
[2020-03-14 10:38] LABS: BUN/Creatinine Ratio 33.3; Bilirubin, Total 2.6 mg/dL (0.2-1.0); Total Protein 7.6 g/dL (6.4-8.2)
[2020-03-14] MEDS ORDERED: DEXTROSE (50%) 50ML SYRG IV PRN (11:45)
[2020-03-14] MEDS: PIPERACILLIN-TAZOB 2.25GM 50 ML IV SCH ×2 (12:00→17:28)
[2020-03-14 13:18] LABS: INR 4.46 (0.9-1.15)
[2020-03-14] MEDS: SOD CHL 0.45% 1,000 ML IV SCH (16:00)
[2020-03-14] MEDS: fentaNYL Drip 2500mCg/250mlNS 250 ML IV SCH (18:15)
[2020-03-15] MEDS: ACCU-CHEK COMFORT CURVE STRIP VI SCH ×7 (00:05→23:24)
[2020-03-15] MEDS: PIPERACILLIN-TAZOB 2.25GM 50 ML IV SCH ×5 (00:05→23:21)
[2020-03-15] MEDS: InsuLIN REG 1unit/0.01ml Soln (100units/ml) SC SCH ×7 (00:08→23:25)
[2020-03-15] MEDS: SOD CHL 0.45% 1,000 ML IV SCH (05:05)
[2020-03-15] MEDS ORDERED: ETOMIDATE (2MG/ML) 20ML VIAL IV ONE (05:35)
[2020-03-15] MEDS ORDERED: SUCCINYLCHOLINE CHLORIDE 20 MG/ML 10ML VIAL IV ONE (05:36)
[2020-03-15 06:04] LABS: Basophils # (auto) 0.1 10 ^3/uL (0-0.2); Eosinophils % (auto) 0.3 % (0.0-7.0); Hemoglobin 9.3 g/dL (13.5-17.5); Nucleated Red Blood Cells % 0.1 %
[2020-03-15 06:05] LABS: Basophils % (auto) 0.4 % (0.0-2.0); Eosinophils # (auto) 0.1 10 ^3/uL (0-0.8); Hematocrit 28.7 % (41.0-53.0); Lymphocytes # (auto) 1.1 10 ^3/uL (0.4-5.4); Lymphocytes % (auto) 7.4 % (10.0-50.0); Mean Corpuscular Hemoglobin 25.7 pg (28.0-32.0); Mean Corpuscular Hgb Conc. 32.4 g/dL (32.0-36.0); Mean Corpuscular Volume 79.2 fL (80.0-100.0); Monocytes # (auto) 0.9 10 ^3/uL (0-1.3); Monocytes % (auto) 5.9 % (0.0-12.0); Neutrophils # (auto) 12.8 10 ^3/uL (1.6-8.6); Red Blood Cells 3.63 10^6/uL (4.5-5.90); White Blood Cell 14.9 10^3/uL (4.4-10.8)
[2020-03-15 06:09] LABS: Red Cell Distribution Width 21.1 % (11.8-14.3)
[2020-03-15 06:10] VITALS: BP 104/55
[2020-03-15] MEDS: METOCLOPRAMIDE HCL 5MG/ml INJ 2ml VIAL IV SCH ×3 (06:10→22:22)
[2020-03-15] MEDS: SODIUM ZIRCONIUM CYCL 10 GM PAK GT SCH (06:10)
[2020-03-15 06:23] LABS: Albumin 1.6 g/dL (3.4-5.0); Anion Gap 5 (5-15); Calcium 8.4 mg/dL (8.5-10.1); Carbon Dioxide 25 mmol/L (21-32); Chloride 123 mmol/L (98-107); Glucose 124 mg/dL (74-106); Potassium 4.3 mmol/L (3.5-5.1); Sodium 153 mmol/L (136-145)
[2020-03-15 06:31] LABS: Alanine Aminotransferase 61 U/L (16-61); Alkaline Phosphatase 85 U/L (45-117); Aspartate Aminotransferase 44 U/L (15-37); BUN/Creatinine Ratio 33.5; Bilirubin, Total 3.3 mg/dL (0.2-1.0); GFR African American 19 mL/min; GFR Non-African American 16 mL/min; Total Protein 7.4 g/dL (6.4-8.2)
[2020-03-15 06:35] LABS: Blood Urea Nitrogen 137 mg/dL (7-18)
[2020-03-15 06:37] LABS: INR 4.61 (0.9-1.15)
[2020-03-15] MEDS: D5W 5% 1,000 ML IV SCH ×2 (08:36→17:10)
[2020-03-15] MEDS: PANTOPRAZOLE 40 MG/10 ML VIAL INJ IV SCH ×2 (09:51→22:22)
[2020-03-15] MEDS: ZINC SULFATE 220mg CAP or TAB PO SCH (09:51)
[2020-03-15] MEDS: METOPROLOL TARTRATE 25 MG TAB GT SCH ×4 (09:51→12:13)
[2020-03-15] MEDS: INSULIN LANTUS (GLARGINE) 1 /0.01ml (100units/ml) SC SCH ×2 (10:01→22:26)
[2020-03-15 17:50] VITALS: BP 119/65
[2020-03-15 21:48] VITALS: BP 123/63
[2020-03-16] MEDS: INSULIN LANTUS (GLARGINE) 1 /0.01ml (100units/ml) SC SCH ×2 (01:11→10:00)
[2020-03-16] MEDS: METOPROLOL TARTRATE 25 MG TAB GT SCH (01:32)
[2020-03-16] MEDS: MIDAZOLAM DRIP 50 mg/50mL 50 ML IV SCH (01:50)
[2020-03-16] MEDS: D5W 5% 1,000 ML IV SCH ×3 (03:04→23:00)
[2020-03-16 03:14] VITALS: BP 129/68
[2020-03-16] MEDS: ACCU-CHEK COMFORT CURVE STRIP VI SCH ×5 (03:31→20:00)
[2020-03-16] MEDS: InsuLIN REG 1unit/0.01ml Soln (100units/ml) SC SCH ×5 (03:31→20:00)
[2020-03-16] MEDS: fentaNYL Drip 2500mCg/250mlNS 250 ML IV SCH ×2 (03:44→18:15)
[2020-03-16] MEDS: PIPERACILLIN-TAZOB 2.25GM 50 ML IV SCH ×3 (05:09→18:00)
[2020-03-16] MEDS: METOCLOPRAMIDE HCL 5MG/ml INJ 2ml VIAL IV SCH ×3 (05:09→22:00)
[2020-03-16 05:12] LABS: Basophils # (auto) 0.1 10 ^3/uL (0-0.2); Basophils % (auto) 0.7 % (0.0-2.0); Eosinophils # (auto) 0.2 10 ^3/uL (0-0.8); Eosinophils % (auto) 1.1 % (0.0-7.0); Monocytes # (auto) 0.6 10 ^3/uL (0-1.3); Neutrophils % (auto) 87.2 % (37.0-80.0)
[2020-03-16 05:14] LABS: Hemoglobin 9.3 g/dL (13.5-17.5); Lymphocytes % (auto) 6.7 % (10.0-50.0); Mean Corpuscular Hemoglobin 25.6 pg (28.0-32.0); Mean Corpuscular Hgb Conc. 31.9 g/dL (32.0-36.0); Mean Corpuscular Volume 80.3 fL (80.0-100.0); Monocytes % (auto) 4.3 % (0.0-12.0); Neutrophils # (auto) 12.9 10 ^3/uL (1.6-8.6); Red Blood Cells 3.62 10^6/uL (4.5-5.90); White Blood Cell 14.8 10^3/uL (4.4-10.8)
[2020-03-16 05:19] LABS: Red Cell Distribution Width 21.4 % (11.8-14.3)
[2020-03-16 05:34] LABS: Albumin 1.5 g/dL (3.4-5.0); Calcium 8.3 mg/dL (8.5-10.1)
[2020-03-16 05:38] LABS: Bilirubin, Total 4.8 mg/dL (0.2-1.0); Total Protein 7.2 g/dL (6.4-8.2)
[2020-03-16 05:44] LABS: INR 4.34 (0.9-1.15)
[2020-03-16 06:13] VITALS: BP 131/66
[2020-03-16] MEDS: PANTOPRAZOLE 40 MG/10 ML VIAL INJ IV SCH ×2 (10:14→22:00)
[2020-03-16] MEDS: ZINC SULFATE 220mg CAP or TAB PO SCH (10:30)
[2020-03-16] MEDS: NOREPINEPHRINE 8 MG/250ML KIT 250 ML IV SCH ×2 (17:51→18:45)
[2020-03-16 18:00] VITALS: BP 105/60
[2020-03-17] VITALS: BP 103/56
[2020-03-17] MEDS: InsuLIN REG 1unit/0.01ml Soln (100units/ml) SC SCH ×6 (01:11→23:44)
[2020-03-17] MEDS: MIDAZOLAM DRIP 50 mg/50mL 50 ML IV SCH (02:15)
[2020-03-17] MEDS: ACCU-CHEK COMFORT CURVE STRIP VI SCH ×6 (04:14→23:44)
[2020-03-17] MEDS: fentaNYL Drip 2500mCg/250mlNS 250 ML IV SCH (04:43)
[2020-03-17] MEDS: PIPERACILLIN-TAZOB 2.25GM 50 ML IV SCH ×5 (06:00→23:45)
[2020-03-17] MEDS: METOCLOPRAMIDE HCL 5MG/ml INJ 2ml VIAL IV SCH ×3 (06:00→21:52)
[2020-03-17 06:13] LABS: Basophils # (auto) 0.1 10 ^3/uL (0-0.2); Eosinophils # (auto) 0.2 10 ^3/uL (0-0.8); Lymphocytes # (auto) 0.9 10 ^3/uL (0.4-5.4); Mean Corpuscular Hgb Conc. 32.6 g/dL (32.0-36.0)
[2020-03-17 06:17] LABS: Eosinophils % (auto) 1.2 % (0.0-7.0); Hematocrit 26.9 % (41.0-53.0); Hemoglobin 8.8 g/dL (13.5-17.5); Lymphocytes % (auto) 6.8 % (10.0-50.0); Mean Corpuscular Hemoglobin 26.2 pg (28.0-32.0); Mean Corpuscular Volume 80.3 fL (80.0-100.0); Monocytes # (auto) 0.5 10 ^3/uL (0-1.3); Neutrophils # (auto) 11.6 10 ^3/uL (1.6-8.6); Red Blood Cells 3.35 10^6/uL (4.5-5.90); White Blood Cell 13.4 10^3/uL (4.4-10.8)
[2020-03-17 06:28] LABS: Red Cell Distribution Width 22.1 % (11.8-14.3)
[2020-03-17 06:41] LABS: Albumin 1.3 g/dL (3.4-5.0); BUN/Creatinine Ratio 26.2; Bilirubin, Total 5.2 mg/dL (0.2-1.0); Calcium 8.1 mg/dL (8.5-10.1); Total Protein 6.9 g/dL (6.4-8.2)
[2020-03-17 07:50] VITALS: BP 136/76
[2020-03-17] MEDS: D5W 5% 1,000 ML IV SCH ×2 (08:30→19:03)
[2020-03-17] MEDS ORDERED: DEXTROSE (50%) 50ML SYRG IV PRN (09:45)
[2020-03-17] MEDS: PANTOPRAZOLE 40 MG/10 ML VIAL INJ IV SCH ×2 (09:58→21:52)
[2020-03-17] MEDS: METOPROLOL TARTRATE 25 MG TAB GT SCH ×2 (10:00→21:41)
[2020-03-17] MEDS: ZINC SULFATE 220mg CAP or TAB PO SCH (10:00)
[2020-03-17] MEDS: INSULIN LANTUS (GLARGINE) 1 /0.01ml (100units/ml) SC SCH ×2 (10:01→21:41)
[2020-03-17 13:30] VITALS: BP 129/74
[2020-03-17 18:31] VITALS: BP 117/64
[2020-03-17] MEDS: NOREPINEPHRINE 8 MG/250ML KIT 250 ML IV SCH (18:45)
[2020-03-18] VITALS (9 sets, daily range): BP systolic 103–165; BP diastolic 62–82
[2020-03-18] MEDS: MIDAZOLAM DRIP 50 mg/50mL 50 ML IV SCH (02:15)
[2020-03-18 04:19] LABS: Eosinophils # (auto) 0.2 10 ^3/uL (0-0.8); Hematocrit 26.2 % (41.0-53.0); Lymphocytes # (auto) 1.3 10 ^3/uL (0.4-5.4); Red Blood Cells 3.24 10^6/uL (4.5-5.90); White Blood Cell 9.4 10^3/uL (4.4-10.8)
[2020-03-18 04:22] LABS: Basophils # (auto) 0.4 10 ^3/uL (0-0.2); Basophils % (auto) 3.9 % (0.0-2.0); Eosinophils % (auto) 2.1 % (0.0-7.0); Hemoglobin 8.5 g/dL (13.5-17.5); Lymphocytes % (auto) 14.3 % (10.0-50.0); Mean Corpuscular Hemoglobin 26.2 pg (28.0-32.0); Mean Corpuscular Hgb Conc. 32.3 g/dL (32.0-36.0); Monocytes # (auto) 0.5 10 ^3/uL (0-1.3); Monocytes % (auto) 5.1 % (0.0-12.0); Neutrophils % (auto) 74.6 % (37.0-80.0); Nucleated Red Blood Cells % 0.1 %
[2020-03-18 04:35] LABS: Red Cell Distribution Width 22.6 % (11.8-14.3)
[2020-03-18] MEDS: D5W 5% 1,000 ML IV SCH ×4 (05:00→23:06)
[2020-03-18 05:44] LABS: INR 4.17 (0.9-1.15)
[2020-03-18] MEDS: PIPERACILLIN-TAZOB 2.25GM 50 ML IV SCH ×3 (06:12→18:18)
[2020-03-18] MEDS: METOCLOPRAMIDE HCL 5MG/ml INJ 2ml VIAL IV SCH ×3 (06:20→22:31)
[2020-03-18] MEDS: InsuLIN REG 1unit/0.01ml Soln (100units/ml) SC SCH ×3 (06:39→18:25)
[2020-03-18] MEDS: ACCU-CHEK COMFORT CURVE STRIP VI SCH ×3 (06:39→18:23)
[2020-03-18 09:12] LABS: BUN/Creatinine Ratio 24.4; Calcium 8.2 mg/dL (8.5-10.1); Potassium 3.9 mmol/L (3.5-5.1)
[2020-03-18] MEDS: METOPROLOL TARTRATE 25 MG TAB GT SCH ×2 (10:30→22:31)
[2020-03-18] MEDS: INSULIN LANTUS (GLARGINE) 1 /0.01ml (100units/ml) SC SCH ×2 (10:36→22:34)
[2020-03-18] MEDS: PANTOPRAZOLE 40 MG/10 ML VIAL INJ IV SCH ×2 (10:36→22:31)
[2020-03-18] MEDS: ZINC SULFATE 220mg CAP or TAB PO SCH (10:36)
[2020-03-18] MEDS: fentaNYL Drip 2500mCg/250mlNS 250 ML IV SCH (18:15)
[2020-03-18] MEDS: NOREPINEPHRINE 8 MG/250ML KIT 250 ML IV SCH (18:45)
[2020-03-19] MEDS: ACCU-CHEK COMFORT CURVE STRIP VI SCH ×4 (00:15→18:00)
[2020-03-19] MEDS: InsuLIN REG 1unit/0.01ml Soln (100units/ml) SC SCH ×4 (00:16→18:00)
[2020-03-19] MEDS: PIPERACILLIN-TAZOB 2.25GM 50 ML IV SCH ×3 (00:17→12:00)
[2020-03-19] MEDS: MIDAZOLAM DRIP 50 mg/50mL 50 ML IV SCH (02:15)
[2020-03-19 03:10] VITALS: BP 149/69
[2020-03-19 04:45] LABS: Basophils # (auto) 0.1 10 ^3/uL (0-0.2); Eosinophils # (auto) 0.2 10 ^3/uL (0-0.8); Hemoglobin 8.8 g/dL (13.5-17.5); Monocytes # (auto) 0.5 10 ^3/uL (0-1.3); Nucleated Red Blood Cells % 0.1 %
[2020-03-19 04:47] LABS: Basophils % (auto) 1.6 % (0.0-2.0); Eosinophils % (auto) 2.7 % (0.0-7.0); Hematocrit 26.7 % (41.0-53.0); Lymphocytes # (auto) 1.1 10 ^3/uL (0.4-5.4); Lymphocytes % (auto) 13.8 % (10.0-50.0); Mean Corpuscular Hemoglobin 26.3 pg (28.0-32.0); Mean Corpuscular Hgb Conc. 32.8 g/dL (32.0-36.0); Mean Corpuscular Volume 80.1 fL (80.0-100.0); Monocytes % (auto) 6.8 % (0.0-12.0); Neutrophils % (auto) 75.1 % (37.0-80.0); Red Blood Cells 3.34 10^6/uL (4.5-5.90)
[2020-03-19 05:05] LABS: Potassium 3.4 mmol/L (3.5-5.1)
[2020-03-19 05:11] LABS: BUN/Creatinine Ratio 21.1; Calcium 8.4 mg/dL (8.5-10.1)
[2020-03-19 05:14] LABS: INR 2.77 (0.9-1.15)
[2020-03-19] MEDS: D5W 5% 1,000 ML IV SCH ×3 (05:45→15:11)
[2020-03-19] MEDS: METOCLOPRAMIDE HCL 5MG/ml INJ 2ml VIAL IV SCH ×3 (06:07→22:00)
[2020-03-19 06:25] VITALS: BP 111/61
[2020-03-19] MEDS: ZINC SULFATE 220mg CAP or TAB PO SCH (10:00)
[2020-03-19] MEDS: INSULIN LANTUS (GLARGINE) 1 /0.01ml (100units/ml) SC SCH ×2 (10:00→22:00)
[2020-03-19] MEDS: PANTOPRAZOLE 40 MG/10 ML VIAL INJ IV SCH ×2 (10:00→22:00)
[2020-03-19] MEDS: METOPROLOL TARTRATE 25 MG TAB GT SCH ×2 (10:00→22:00)
[2020-03-19 10:19] VITALS: BP 126/60
[2020-03-19] MEDS ORDERED: MORPHINE SULFATE INJECTION 2 MG/ML SYRG IV PRN (15:00)
[2020-03-19] MEDS ORDERED: MIDAZOLAM HCL 2MG/2ML 2ml VIAL (1mg/ml) IV PRN (15:00)
[2020-03-19] MEDS ORDERED: PPN PER PHARMACY 0 ML IV SCH (15:00)
[2020-03-19 15:46] LABS: Albumin 1.5 g/dL (3.4-5.0); Bilirubin, Direct 3.8 mg/dL (0-0.2); Bilirubin, Total 4.7 mg/dL (0.2-1.0); Pre Albumin 13.7 mg/dL (20.0-40.0); Total Protein 7.2 g/dL (6.4-8.2)
[2020-03-19] MEDS ORDERED: POTASSIUM PHOSPHATE 22 MEQ in SODIUM CHL 0.9% 100 ML IV ONE (18:00)
[2020-03-19 18:07] VITALS: BP 151/68
[2020-03-19] MEDS ORDERED: AMINO ACID INFUSION IN D5W 2,000 ML IV NR (20:00)
[2020-03-19] MEDS ORDERED: DEXTROSE (50%) 50ML SYRG IV SCH (20:00)
[2020-03-19] MEDS: LINEZOLID 600MG/300ML 300 ML IV SCH (22:00)
[2020-03-19] MEDS: MEROPENEM 500MG IVPB 50 ML IV SCH (22:00)
[2020-03-20 02:54] VITALS: BP 188/72
[2020-03-20] MEDS: D5W 5% 1,000 ML IV SCH (04:20)
[2020-03-20 05:05] LABS: Basophils # (auto) 0.1 10 ^3/uL (0-0.2); Eosinophils # (auto) 0.2 10 ^3/uL (0-0.8); Mean Corpuscular Hemoglobin 26.5 pg (28.0-32.0); Mean Corpuscular Hgb Conc. 32.7 g/dL (32.0-36.0); Monocytes # (auto) 0.4 10 ^3/uL (0-1.3); Red Cell Distribution Width 21.8 % (11.8-14.3)
[2020-03-20 05:07] LABS: Basophils % (auto) 1.3 % (0.0-2.0); Eosinophils % (auto) 3.3 % (0.0-7.0); Hematocrit 27.4 % (41.0-53.0); Lymphocytes # (auto) 0.7 10 ^3/uL (0.4-5.4); Lymphocytes % (auto) 11.5 % (10.0-50.0); Mean Corpuscular Volume 80.9 fL (80.0-100.0); Monocytes % (auto) 6.9 % (0.0-12.0); Neutrophils # (auto) 4.9 10 ^3/uL (1.6-8.6); Nucleated Red Blood Cells % 0.2 %; Red Blood Cells 3.38 10^6/uL (4.5-5.90); White Blood Cell 6.4 10^3/uL (4.4-10.8)
[2020-03-20 05:09] LABS: Albumin 1.5 g/dL (3.4-5.0); Calcium 7.9 mg/dL (8.5-10.1); Magnesium 1.8 mg/dL (1.6-2.6); Potassium 3.2 mmol/L (3.5-5.1)
[2020-03-20 05:14] LABS: BUN/Creatinine Ratio 19.2; Bilirubin, Total 4.6 mg/dL (0.2-1.0); Phosphorus 3.2 mg/dL (2.5-4.90); Total Protein 7.1 g/dL (6.4-8.2)
[2020-03-20] MEDS: METOCLOPRAMIDE HCL 5MG/ml INJ 2ml VIAL IV SCH ×2 (06:00→14:00)
[2020-03-20] MEDS: ACCU-CHEK COMFORT CURVE STRIP VI SCH ×4 (06:00→16:54)
[2020-03-20] MEDS: InsuLIN REG 1unit/0.01ml Soln (100units/ml) SC SCH ×4 (06:00→16:55)
[2020-03-20 06:10] VITALS: BP 174/79
[2020-03-20] MEDS: POTASSIUM CHL 20MEQ/100ML 100 ML IV SCH ×2 (09:00→11:00)
[2020-03-20] MEDS: METOPROLOL TARTRATE 25 MG TAB GT SCH ×2 (09:21→09:40)
[2020-03-20] MEDS: PANTOPRAZOLE 40 MG/10 ML VIAL INJ IV SCH (09:22)
[2020-03-20] MEDS: INSULIN LANTUS (GLARGINE) 1 /0.01ml (100units/ml) SC SCH ×2 (09:23→22:00)
[2020-03-20] MEDS: ZINC SULFATE 220mg CAP or TAB PO SCH (09:23)
[2020-03-20] MEDS: MEROPENEM 500MG IVPB 50 ML IV SCH ×2 (10:00→22:10)
[2020-03-20] MEDS: LINEZOLID 600MG/300ML 300 ML IV SCH (10:00)
[2020-03-20] MEDS: hydrALAZINE HCL 20 MG/ML VL IV PRN (10:27)
[2020-03-20 14:35] VITALS: BP 164/69
[2020-03-20 19:01] VITALS: BP 153/73
[2020-03-20] MEDS ORDERED: PPN PER PHARMACY IV NR ×9 (20:00)
[2020-03-20 22:13] VITALS: BP 112/60
[2020-03-20 22:30] VITALS: BP 92/54
[2020-03-21] VITALS (51 sets, daily range): BP systolic 99–180; BP diastolic 56–82
[2020-03-21] MEDS: ACCU-CHEK COMFORT CURVE STRIP VI SCH ×3 (00:19→18:05)
[2020-03-21 03:52] LABS: Basophils # (auto) 0.1 10 ^3/uL (0-0.2); Eosinophils # (auto) 0.2 10 ^3/uL (0-0.8); Hemoglobin 8.4 g/dL (13.5-17.5); Lymphocytes % (auto) 9.8 % (10.0-50.0); Monocytes # (auto) 0.6 10 ^3/uL (0-1.3); Nucleated Red Blood Cells % 0.2 %
[2020-03-21 03:54] LABS: Basophils % (auto) 0.8 % (0.0-2.0); Hematocrit 25.5 % (41.0-53.0); Lymphocytes # (auto) 0.9 10 ^3/uL (0.4-5.4); Mean Corpuscular Hemoglobin 26.7 pg (28.0-32.0); Mean Corpuscular Hgb Conc. 32.8 g/dL (32.0-36.0); Mean Corpuscular Volume 81.2 fL (80.0-100.0); Monocytes % (auto) 7.1 % (0.0-12.0); Neutrophils # (auto) 7.1 10 ^3/uL (1.6-8.6); Neutrophils % (auto) 80.3 % (37.0-80.0); Red Blood Cells 3.14 10^6/uL (4.5-5.90); White Blood Cell 8.9 10^3/uL (4.4-10.8)
[2020-03-21 03:59] LABS: Red Cell Distribution Width 21.4 % (11.8-14.3)
[2020-03-21 04:12] LABS: Albumin 1.4 g/dL (3.4-5.0); Calcium 8.7 mg/dL (8.5-10.1); Magnesium 1.8 mg/dL (1.6-2.6); Potassium 3.9 mmol/L (3.5-5.1)
[2020-03-21 04:16] LABS: BUN/Creatinine Ratio 20.1; Bilirubin, Total 4.5 mg/dL (0.2-1.0); Phosphorus 2.9 mg/dL (2.5-4.90)
[2020-03-21] MEDS: PANTOPRAZOLE 40 MG/10 ML VIAL INJ IV SCH ×2 (10:17→22:00)
[2020-03-21] MEDS: LINEZOLID 600MG/300ML 300 ML IV SCH (10:18)
[2020-03-21] MEDS: ZINC SULFATE 220mg CAP or TAB PO SCH (10:19)
[2020-03-21] MEDS: METOPROLOL TARTRATE 25 MG TAB GT SCH ×2 (10:19→22:00)
[2020-03-21] MEDS: INSULIN LANTUS (GLARGINE) 1 /0.01ml (100units/ml) SC SCH (10:20)
[2020-03-21] MEDS: InsuLIN REG 1unit/0.01ml Soln (100units/ml) SC SCH ×3 (12:00→18:06)
[2020-03-21] MEDS: MEROPENEM 500MG IVPB 50 ML IV SCH (12:46)
[2020-03-21] MEDS ORDERED: MAGNESIUM SULFATE 1GM/100ML 100 ML IV ONE (13:30)
[2020-03-21] MEDS ORDERED: TPN PER PHARMACY 0 ML IV SCH (13:30)
[2020-03-21] MEDS: METOCLOPRAMIDE HCL 5MG/ml INJ 2ml VIAL IV SCH ×3 (14:45→22:00)
[2020-03-21] MEDS: hydrALAZINE HCL 20 MG/ML VL IV PRN (14:52)
[2020-03-21] MEDS ORDERED: TPN PER PHARMACY IV NR ×8 (20:00)
[2020-03-21 20:31] LABS: INR 1.3 (0.9-1.15)
[2020-03-21] MEDS ORDERED: MEROPENEM 1GM IVPB 100 ML IV SCH (22:00)
[2020-03-22] VITALS (36 sets, daily range): BP systolic 133–165; BP diastolic 55–76
[2020-03-22] MEDS ORDERED: FUROSEMIDE 20 MG/2 ML VIAL IV ONE (04:15)
[2020-03-22] MEDS ORDERED: D5W/SOD CHL 0.45% 1,000 ML IV SCH (04:15)
[2020-03-22] MEDS: METOCLOPRAMIDE HCL 5MG/ml INJ 2ml VIAL IV SCH ×3 (06:00→23:24)
[2020-03-22] MEDS: InsuLIN REG 1unit/0.01ml Soln (100units/ml) SC SCH ×5 (06:00→23:29)
[2020-03-22] MEDS: ACCU-CHEK COMFORT CURVE STRIP VI SCH ×5 (06:00→23:26)
[2020-03-22 07:06] LABS: Basophils # (auto) 0.1 10 ^3/uL (0-0.2); Eosinophils # (auto) 0.2 10 ^3/uL (0-0.8); Lymphocytes # (auto) 0.8 10 ^3/uL (0.4-5.4); Monocytes # (auto) 0.6 10 ^3/uL (0-1.3); Neutrophils # (auto) 7.7 10 ^3/uL (1.6-8.6); Nucleated Red Blood Cells % 0.1 %
[2020-03-22 07:08] LABS: Basophils % (auto) 1.2 % (0.0-2.0); Eosinophils % (auto) 2.1 % (0.0-7.0); Hematocrit 25.7 % (41.0-53.0); Hemoglobin 8.5 g/dL (13.5-17.5); Lymphocytes % (auto) 8.3 % (10.0-50.0); Mean Corpuscular Hemoglobin 26.4 pg (28.0-32.0); Mean Corpuscular Volume 80.2 fL (80.0-100.0); Monocytes % (auto) 6.6 % (0.0-12.0); Neutrophils % (auto) 81.8 % (37.0-80.0); White Blood Cell 9.4 10^3/uL (4.4-10.8)
[2020-03-22 07:09] LABS: Red Cell Distribution Width 21.5 % (11.8-14.3)
[2020-03-22 07:51] LABS: Chloride 123 mmol/L (98-107); Potassium 3.8 mmol/L (3.5-5.1); Sodium 150 mmol/L (136-145)
[2020-03-22 07:57] LABS: Alanine Aminotransferase 52 U/L (16-61); Albumin 1.6 g/dL (3.4-5.0); Anion Gap 7 (5-15); Aspartate Aminotransferase 50 U/L (15-37); BUN/Creatinine Ratio 20.4; Blood Urea Nitrogen 56 mg/dL (7-18); Calcium 8.3 mg/dL (8.5-10.1); Carbon Dioxide 20 mmol/L (21-32); GFR African American 30 mL/min; GFR Non-African American 25 mL/min; Glucose 247 mg/dL (74-106); Magnesium 2.2 mg/dL (1.6-2.6)
[2020-03-22 07:59] LABS: Phosphorus 2.6 mg/dL (2.5-4.90)
[2020-03-22 08:00] LABS: Alkaline Phosphatase < 10 U/L (45-117); Bilirubin, Total 3.9 mg/dL (0.2-1.0); Total Protein 7.2 g/dL (6.4-8.2)
[2020-03-22] MEDS: PANTOPRAZOLE 40 MG/10 ML VIAL INJ IV SCH ×2 (09:44→23:24)
[2020-03-22] MEDS: ASPirin 81 mg TAB PO SCH (09:44)
[2020-03-22] MEDS: METOPROLOL TARTRATE 25 MG TAB GT SCH ×2 (09:44→23:30)
[2020-03-22] MEDS: ENOXAPARIN SOD 40 MG/0.4 ML SYRINGE SC SCH (09:44)
[2020-03-22] MEDS: ZINC SULFATE 220mg CAP or TAB PO SCH (09:46)
[2020-03-22] MEDS: CEFEPIME 1 GM in SODIUM CHL 0.9% 50 ML IV SCH ×2 (11:00→23:30)
[2020-03-22] MEDS: hydrALAZINE HCL 20 MG/ML VL IV PRN (14:38)
[2020-03-22] MEDS ORDERED: FUROSEMIDE 20 MG/2 ML VIAL IV SCH (18:00)
[2020-03-22] MEDS ORDERED: TPN PER PHARMACY IV NR ×8 (20:00)
[2020-03-22] MEDS: ATORVASTATIN 20 MG TAB PO SCH (23:24)
[2020-03-22] MEDS: INSULIN LANTUS (GLARGINE) 1 /0.01ml (100units/ml) SC SCH (23:25)
[2020-03-23] VITALS: BP 123/68
[2020-03-23 06:19] LABS: Basophils # (auto) 0.1 10 ^3/uL (0-0.2); Basophils % (auto) 1.3 % (0.0-2.0); Eosinophils # (auto) 0.2 10 ^3/uL (0-0.8); Hematocrit 30.4 % (41.0-53.0); Nucleated Red Blood Cells % 0.1 %
[2020-03-23 06:25] LABS: Eosinophils % (auto) 2.3 % (0.0-7.0); Hemoglobin 9.9 g/dL (13.5-17.5); Lymphocytes # (auto) 0.8 10 ^3/uL (0.4-5.4); Lymphocytes % (auto) 8.1 % (10.0-50.0); Mean Corpuscular Hemoglobin 26.1 pg (28.0-32.0); Mean Corpuscular Hgb Conc. 32.6 g/dL (32.0-36.0); Monocytes # (auto) 0.7 10 ^3/uL (0-1.3); Monocytes % (auto) 6.8 % (0.0-12.0); Neutrophils # (auto) 8.2 10 ^3/uL (1.6-8.6); Neutrophils % (auto) 81.5 % (37.0-80.0); White Blood Cell 10.1 10^3/uL (4.4-10.8)
[2020-03-23 06:30] LABS: Red Cell Distribution Width 22.2 % (11.8-14.3)
[2020-03-23 06:41] LABS: Potassium 4.3 mmol/L (3.5-5.1)
[2020-03-23] MEDS: ACCU-CHEK COMFORT CURVE STRIP VI SCH ×3 (06:45→17:51)
[2020-03-23] MEDS: METOCLOPRAMIDE HCL 5MG/ml INJ 2ml VIAL IV SCH (06:45)
[2020-03-23] MEDS: InsuLIN REG 1unit/0.01ml Soln (100units/ml) SC SCH ×3 (06:46→17:51)
[2020-03-23 06:49] LABS: Albumin 1.6 g/dL (3.4-5.0); Bilirubin, Total 3.4 mg/dL (0.2-1.0); Calcium 8.9 mg/dL (8.5-10.1); Magnesium 2.7 mg/dL (1.6-2.6); Phosphorus 3.4 mg/dL (2.5-4.90); Total Protein 7.6 g/dL (6.4-8.2)
[2020-03-23 09:00] VITALS: BP 129/76
[2020-03-23] MEDS: PANTOPRAZOLE 40 MG/10 ML VIAL INJ IV SCH ×2 (09:09→22:39)
[2020-03-23] MEDS: CEFEPIME 1 GM in SODIUM CHL 0.9% 50 ML IV SCH (09:09)
[2020-03-23] MEDS: METOPROLOL TARTRATE 25 MG TAB GT SCH ×2 (09:09→22:40)
[2020-03-23] MEDS: ASPirin 81 mg TAB PO SCH (09:10)
[2020-03-23] MEDS: ENOXAPARIN SOD 40 MG/0.4 ML SYRINGE SC SCH (09:10)
[2020-03-23] MEDS: ZINC SULFATE 220mg CAP or TAB PO SCH (09:10)
[2020-03-23] MEDS: D5W 5% 1,000 ML IV SCH (12:58)
[2020-03-23 17:00] VITALS: BP 124/72
[2020-03-23] MEDS ORDERED: TPN PER PHARMACY IV NR ×9 (20:00)
[2020-03-23] MEDS ORDERED: AMINO ACID INFUSION IN D10W 1,000 ML IV NR (20:00)
[2020-03-23] MEDS: ATORVASTATIN 20 MG TAB PO SCH (22:39)
[2020-03-23] MEDS: INSULIN LANTUS (GLARGINE) 1 /0.01ml (100units/ml) SC SCH (22:51)
[2020-03-24] VITALS: BP 136/64
[2020-03-24] MEDS: ACCU-CHEK COMFORT CURVE STRIP VI SCH ×4 (00:05→18:40)
[2020-03-24] MEDS: InsuLIN REG 1unit/0.01ml Soln (100units/ml) SC SCH ×4 (00:09→18:41)
[2020-03-24 07:00] LABS: Basophils # (auto) 0.1 10 ^3/uL (0-0.2); Basophils % (auto) 1.3 % (0.0-2.0); Eosinophils # (auto) 0.3 10 ^3/uL (0-0.8); Monocytes # (auto) 0.7 10 ^3/uL (0-1.3); Monocytes % (auto) 7.5 % (0.0-12.0)
[2020-03-24 07:03] LABS: Eosinophils % (auto) 3.4 % (0.0-7.0); Hematocrit 27.8 % (41.0-53.0); Hemoglobin 9.1 g/dL (13.5-17.5); Lymphocytes % (auto) 10.5 % (10.0-50.0); Mean Corpuscular Hemoglobin 26.2 pg (28.0-32.0); Mean Corpuscular Hgb Conc. 32.6 g/dL (32.0-36.0); Mean Corpuscular Volume 80.3 fL (80.0-100.0); Neutrophils # (auto) 7.4 10 ^3/uL (1.6-8.6); Neutrophils % (auto) 77.3 % (37.0-80.0); Red Blood Cells 3.46 10^6/uL (4.5-5.90); White Blood Cell 9.6 10^3/uL (4.4-10.8)
[2020-03-24 07:18] LABS: Red Cell Distribution Width 22.1 % (11.8-14.3)
[2020-03-24 08:00] VITALS: BP 146/79
[2020-03-24 08:54] LABS: Potassium 4.7 mmol/L (3.5-5.1)
[2020-03-24 09:31] LABS: Albumin 1.7 g/dL (3.4-5.0); BUN/Creatinine Ratio 22.5; Calcium 8.6 mg/dL (8.5-10.1); Magnesium 2.6 mg/dL (1.6-2.6); Phosphorus 3.5 mg/dL (2.5-4.90); Total Protein 7.4 g/dL (6.4-8.2)
[2020-03-24] MEDS: ENOXAPARIN SOD 40 MG/0.4 ML SYRINGE SC SCH (10:00)
[2020-03-24] MEDS ORDERED: TPN PER PHARMACY IV NR ×16 (10:15→20:00)
[2020-03-24] MEDS: PANTOPRAZOLE 40 MG/10 ML VIAL INJ IV SCH ×2 (11:53→21:29)
[2020-03-24] MEDS: METOPROLOL TARTRATE 25 MG TAB GT SCH ×2 (11:54→21:33)
[2020-03-24] MEDS: ASPirin 81 mg TAB PO SCH (11:54)
[2020-03-24] MEDS: ZINC SULFATE 220mg CAP or TAB PO SCH (11:55)
[2020-03-24] MEDS: D5W 5% 1,000 ML IV SCH ×2 (12:04→16:27)
[2020-03-24] MEDS ORDERED: SOD CHL 0.45% 1,000 ML IV SCH (12:45)
[2020-03-24 13:12] LABS: Amylase 147 U/L (25-115); Lipase 381 U/L (73-393)
[2020-03-24] MEDS ORDERED: DEXTROSE (50%) 50ML SYRG IV PRN (15:45)
[2020-03-24 16:00] VITALS: BP 144/70
[2020-03-24] MEDS: ATORVASTATIN 20 MG TAB PO SCH (21:27)
[2020-03-24] MEDS: INSULIN LANTUS (GLARGINE) 1 /0.01ml (100units/ml) SC SCH (21:31)
[2020-03-25] VITALS: BP 148/66
[2020-03-25] MEDS: D5W 5% 1,000 ML IV SCH ×3 (00:27→18:53)
[2020-03-25] MEDS: ACCU-CHEK COMFORT CURVE STRIP VI SCH ×5 (00:28→23:28)
[2020-03-25] MEDS: InsuLIN REG 1unit/0.01ml Soln (100units/ml) SC SCH ×5 (00:32→23:32)
[2020-03-25 06:21] LABS: Basophils # (auto) 0.1 10 ^3/uL (0-0.2); Monocytes # (auto) 0.7 10 ^3/uL (0-1.3); White Blood Cell 9.2 10^3/uL (4.4-10.8)
[2020-03-25 06:25] LABS: Basophils % (auto) 1.5 % (0.0-2.0); Eosinophils # (auto) 0.4 10 ^3/uL (0-0.8); Eosinophils % (auto) 4.6 % (0.0-7.0); Hematocrit 26.6 % (41.0-53.0); Hemoglobin 8.6 g/dL (13.5-17.5); Lymphocytes # (auto) 0.9 10 ^3/uL (0.4-5.4); Lymphocytes % (auto) 10.3 % (10.0-50.0); Mean Corpuscular Hemoglobin 26.3 pg (28.0-32.0); Mean Corpuscular Hgb Conc. 32.4 g/dL (32.0-36.0); Monocytes % (auto) 7.1 % (0.0-12.0); Neutrophils # (auto) 7.1 10 ^3/uL (1.6-8.6); Neutrophils % (auto) 76.5 % (37.0-80.0); Nucleated Red Blood Cells % 0.1 %; Red Blood Cells 3.29 10^6/uL (4.5-5.90)
[2020-03-25 08:00] VITALS: BP 145/77
[2020-03-25 08:44] LABS: Albumin 1.6 g/dL (3.4-5.0); BUN/Creatinine Ratio 24.6; Bilirubin, Total 2.1 mg/dL (0.2-1.0); Calcium 8.7 mg/dL (8.5-10.1); Magnesium 2.3 mg/dL (1.6-2.6); Phosphorus 3.1 mg/dL (2.5-4.90); Potassium 4.5 mmol/L (3.5-5.1); Total Protein 7.1 g/dL (6.4-8.2)
[2020-03-25] MEDS: ZINC SULFATE 220mg CAP or TAB PO SCH (10:41)
[2020-03-25] MEDS: ASPirin 81 mg TAB PO SCH (10:42)
[2020-03-25] MEDS: PANTOPRAZOLE 40 MG/10 ML VIAL INJ IV SCH ×2 (10:42→23:10)
[2020-03-25] MEDS: ENOXAPARIN SOD 40 MG/0.4 ML SYRINGE SC SCH (10:42)
[2020-03-25] MEDS: METOPROLOL TARTRATE 25 MG TAB GT SCH ×2 (10:42→23:33)
[2020-03-25 13:24] LABS: INR 1.14 (0.9-1.15); Partial Thromboplastin Time 24.6 sec (23.0-31.2)
[2020-03-25 16:00] VITALS: BP 158/77
[2020-03-25] MEDS ORDERED: TPN PER PHARMACY IV NR ×10 (20:00)
[2020-03-25] MEDS: ATORVASTATIN 20 MG TAB PO SCH (23:10)
[2020-03-25] MEDS: APIXABAN 5 MG TAB PO SCH (23:10)
[2020-03-25] MEDS: INSULIN LANTUS (GLARGINE) 1 /0.01ml (100units/ml) SC SCH (23:32)
[2020-03-26] VITALS: BP 163/84
[2020-03-26] MEDS: ACCU-CHEK COMFORT CURVE STRIP VI SCH ×4 (05:30→23:07)
[2020-03-26] MEDS: InsuLIN REG 1unit/0.01ml Soln (100units/ml) SC SCH ×4 (05:31→23:26)
[2020-03-26 07:25] LABS: Basophils # (auto) 0.1 10 ^3/uL (0-0.2); Basophils % (auto) 1.6 % (0.0-2.0); Eosinophils # (auto) 0.5 10 ^3/uL (0-0.8); Eosinophils % (auto) 5.8 % (0.0-7.0); Hematocrit 25.4 % (41.0-53.0); Hemoglobin 8.6 g/dL (13.5-17.5); Lymphocytes # (auto) 1.2 10 ^3/uL (0.4-5.4); Lymphocytes % (auto) 14.1 % (10.0-50.0); Mean Corpuscular Volume 79.5 fL (80.0-100.0); Monocytes # (auto) 0.7 10 ^3/uL (0-1.3); Monocytes % (auto) 7.5 % (0.0-12.0); Neutrophils # (auto) 6.2 10 ^3/uL (1.6-8.6); Nucleated Red Blood Cells % 0.1 %; White Blood Cell 8.8 10^3/uL (4.4-10.8)
[2020-03-26 07:34] LABS: Potassium 4.3 mmol/L (3.5-5.1)
[2020-03-26 07:40] LABS: Albumin 1.6 g/dL (3.4-5.0); BUN/Creatinine Ratio 24.5; Bilirubin, Total 2.1 mg/dL (0.2-1.0); Calcium 8.5 mg/dL (8.5-10.1); Magnesium 1.8 mg/dL (1.6-2.6); Total Protein 7.1 g/dL (6.4-8.2)
[2020-03-26 08:00] VITALS: BP 155/76
[2020-03-26] MEDS: D5W 5% 1,000 ML IV SCH (09:56)
[2020-03-26] MEDS: PANTOPRAZOLE 40 MG/10 ML VIAL INJ IV SCH (09:57)
[2020-03-26] MEDS: ASPirin 81 mg TAB PO SCH (09:57)
[2020-03-26] MEDS: METOPROLOL TARTRATE 25 MG TAB GT SCH ×2 (09:57→23:20)
[2020-03-26] MEDS: ZINC SULFATE 220mg CAP or TAB PO SCH (09:57)
[2020-03-26] MEDS: APIXABAN 5 MG TAB PO SCH ×2 (09:58→23:07)
[2020-03-26] MEDS ORDERED: D5W 5% 1,000 ML IV SCH (13:45)
[2020-03-26 16:19] VITALS: BP 159/79
[2020-03-26] MEDS ORDERED: TPN PER PHARMACY IV NR ×9 (20:00)
[2020-03-26] MEDS: ATORVASTATIN 20 MG TAB PO SCH (23:07)
[2020-03-26] MEDS: INSULIN LANTUS (GLARGINE) 1 /0.01ml (100units/ml) SC SCH (23:26)
[2020-03-27] VITALS: BP 148/92
[2020-03-27] MEDS: ACCU-CHEK COMFORT CURVE STRIP VI SCH ×3 (05:52→18:00)
[2020-03-27] MEDS: InsuLIN REG 1unit/0.01ml Soln (100units/ml) SC SCH ×3 (05:56→18:12)
[2020-03-27 06:00] LABS: Albumin 1.6 g/dL (3.4-5.0); BUN/Creatinine Ratio 23.7; Bilirubin, Total 1.8 mg/dL (0.2-1.0); Calcium 8.3 mg/dL (8.5-10.1); Magnesium 1.7 mg/dL (1.6-2.6); Phosphorus 3.3 mg/dL (2.5-4.90); Pre Albumin 17.2 mg/dL (20.0-40.0); Total Protein 7.2 g/dL (6.4-8.2)
[2020-03-27 08:00] VITALS: BP 116/73
[2020-03-27] MEDS: PANTOPRAZOLE 40 MG/10 ML VIAL INJ IV SCH (10:00)
[2020-03-27] MEDS: ZINC SULFATE 220mg CAP or TAB PO SCH (10:00)
[2020-03-27] MEDS: ASPirin 81 mg TAB PO SCH (11:00)
[2020-03-27] MEDS: APIXABAN 5 MG TAB PO SCH (11:00)
[2020-03-27] MEDS: METOPROLOL TARTRATE 25 MG TAB GT SCH ×2 (11:40→23:30)
[2020-03-27 16:00] VITALS: BP 143/76
[2020-03-27] MEDS ORDERED: TPN PER PHARMACY IV NR ×11 (20:00)
[2020-03-27] MEDS: INSULIN LANTUS (GLARGINE) 1 /0.01ml (100units/ml) SC SCH (23:15)
[2020-03-28] VITALS: BP 168/83
[2020-03-28] MEDS: ATORVASTATIN 20 MG TAB PO SCH ×2 (00:02→22:57)
[2020-03-28] MEDS: APIXABAN 5 MG TAB PO SCH ×3 (00:02→22:57)
[2020-03-28] MEDS: ACCU-CHEK COMFORT CURVE STRIP VI SCH ×5 (00:03→23:55)
[2020-03-28] MEDS: InsuLIN REG 1unit/0.01ml Soln (100units/ml) SC SCH ×5 (01:04→23:56)
[2020-03-28 07:08] LABS: Albumin 1.7 g/dL (3.4-5.0); Potassium 4.2 mmol/L (3.5-5.1)
[2020-03-28 07:20] LABS: Bilirubin, Total 1.8 mg/dL (0.2-1.0); Calcium 7.9 mg/dL (8.5-10.1); Magnesium 1.9 mg/dL (1.6-2.6); Phosphorus 3.1 mg/dL (2.5-4.90); Total Protein 7.4 g/dL (6.4-8.2)
[2020-03-28 08:00] VITALS: BP 158/79
[2020-03-28] MEDS: PANTOPRAZOLE 40 MG/10 ML VIAL INJ IV SCH (10:00)
[2020-03-28] MEDS: METOPROLOL TARTRATE 25 MG TAB GT SCH ×2 (10:00→23:39)
[2020-03-28] MEDS: ZINC SULFATE 220mg CAP or TAB PO SCH (10:00)
[2020-03-28] MEDS: ASPirin 81 mg TAB PO SCH (10:00)
[2020-03-28] MEDS ORDERED: PIPERACILLIN-TAZOB 2.25GM 50 ML IV ONE (12:45)
[2020-03-28 16:00] VITALS: BP 157/78
[2020-03-28] MEDS: PIPERACILLIN-TAZOB 2.25GM 50 ML IV SCH (18:52)
[2020-03-28] MEDS ORDERED: TPN PER PHARMACY IV NR ×10 (20:00)
[2020-03-28] MEDS: LINEZOLID 600MG/300ML 300 ML IV SCH (22:56)
[2020-03-28] MEDS: INSULIN LANTUS (GLARGINE) 1 /0.01ml (100units/ml) SC SCH (22:58)
[2020-03-29] VITALS: BP 155/80
[2020-03-29] MEDS: PIPERACILLIN-TAZOB 2.25GM 50 ML IV SCH ×4 (00:30→18:30)
[2020-03-29] MEDS: ACCU-CHEK COMFORT CURVE STRIP VI SCH ×3 (06:28→18:00)
[2020-03-29] MEDS: InsuLIN REG 1unit/0.01ml Soln (100units/ml) SC SCH ×3 (06:36→18:00)
[2020-03-29 07:15] LABS: Basophils # (auto) 0.1 10 ^3/uL (0-0.2); Lymphocytes # (auto) 1.2 10 ^3/uL (0.4-5.4); Monocytes # (auto) 0.8 10 ^3/uL (0-1.3)
[2020-03-29 07:19] LABS: Basophils % (auto) 1.1 % (0.0-2.0); Eosinophils # (auto) 0.3 10 ^3/uL (0-0.8); Eosinophils % (auto) 3.2 % (0.0-7.0); Hematocrit 25.6 % (41.0-53.0); Hemoglobin 8.6 g/dL (13.5-17.5); Lymphocytes % (auto) 13.8 % (10.0-50.0); Mean Corpuscular Hemoglobin 26.4 pg (28.0-32.0); Mean Corpuscular Hgb Conc. 33.8 g/dL (32.0-36.0); Mean Corpuscular Volume 78.3 fL (80.0-100.0); Monocytes % (auto) 9.1 % (0.0-12.0); Neutrophils # (auto) 6.5 10 ^3/uL (1.6-8.6); Neutrophils % (auto) 72.8 % (37.0-80.0); Red Blood Cells 3.27 10^6/uL (4.5-5.90)
[2020-03-29 07:21] LABS: Red Cell Distribution Width 21.8 % (11.8-14.3)
[2020-03-29 07:57] LABS: Potassium 4.3 mmol/L (3.5-5.1)
[2020-03-29 08:04] LABS: Albumin 1.7 g/dL (3.4-5.0); BUN/Creatinine Ratio 22.7; Bilirubin, Total 1.7 mg/dL (0.2-1.0); Calcium 7.9 mg/dL (8.5-10.1); Magnesium 1.8 mg/dL (1.6-2.6); Phosphorus 3.1 mg/dL (2.5-4.90); Total Protein 7.3 g/dL (6.4-8.2)
[2020-03-29] MEDS: METOPROLOL TARTRATE 25 MG TAB GT SCH ×2 (09:05→22:00)
[2020-03-29] MEDS: LINEZOLID 600MG/300ML 300 ML IV SCH ×2 (09:06→21:48)
[2020-03-29] MEDS: PANTOPRAZOLE 40 MG/10 ML VIAL INJ IV SCH (09:07)
[2020-03-29] MEDS: APIXABAN 5 MG TAB PO SCH ×2 (09:07→21:48)
[2020-03-29] MEDS: ASPirin 81 mg TAB PO SCH (09:07)
[2020-03-29] MEDS: ZINC SULFATE 220mg CAP or TAB PO SCH (09:07)
[2020-03-29] MEDS: ATORVASTATIN 20 MG TAB PO SCH (21:48)
[2020-03-29] MEDS: INSULIN LANTUS (GLARGINE) 1 /0.01ml (100units/ml) SC SCH (22:11)
[2020-03-30] VITALS: BP 141/69
[2020-03-30] MEDS: InsuLIN REG 1unit/0.01ml Soln (100units/ml) SC SCH ×4 (06:00→17:22)
[2020-03-30] MEDS: PIPERACILLIN-TAZOB 2.25GM 50 ML IV SCH ×3 (06:41→12:00)
[2020-03-30] MEDS: ACCU-CHEK COMFORT CURVE STRIP VI SCH ×4 (06:41→17:15)
[2020-03-30 08:20] VITALS: BP 141/77
[2020-03-30] MEDS: PANTOPRAZOLE 40 MG/10 ML VIAL INJ IV SCH (10:00)
[2020-03-30] MEDS: METOPROLOL TARTRATE 25 MG TAB GT SCH ×3 (10:06→23:27)
[2020-03-30] MEDS: APIXABAN 5 MG TAB PO SCH ×2 (10:06→22:27)
[2020-03-30] MEDS: ASPirin 81 mg TAB PO SCH (10:06)
[2020-03-30] MEDS: LINEZOLID 600MG/300ML 300 ML IV SCH (10:06)
[2020-03-30] MEDS: ZINC SULFATE 220mg CAP or TAB PO SCH (10:06)
[2020-03-30 22:00] VITALS: BP 151/79
[2020-03-30] MEDS: ATORVASTATIN 20 MG TAB PO SCH (22:27)
[2020-03-30] MEDS: INSULIN LANTUS (GLARGINE) 1 /0.01ml (100units/ml) SC SCH (22:28)
[2020-03-31] VITALS: BP 147/70
[2020-03-31] MEDS: ACCU-CHEK COMFORT CURVE STRIP VI SCH ×3 (00:16→11:57)
[2020-03-31] MEDS: InsuLIN REG 1unit/0.01ml Soln (100units/ml) SC SCH ×3 (00:16→11:56)
[2020-03-31 06:24] LABS: Basophils # (auto) 0.1 10 ^3/uL (0-0.2); Eosinophils # (auto) 0.2 10 ^3/uL (0-0.8); Eosinophils % (auto) 2.8 % (0.0-7.0); Hemoglobin 8.8 g/dL (13.5-17.5); Nucleated Red Blood Cells % 0.1 %
[2020-03-31 06:28] LABS: Basophils % (auto) 1.3 % (0.0-2.0); Hematocrit 25.9 % (41.0-53.0); Lymphocytes # (auto) 1.2 10 ^3/uL (0.4-5.4); Lymphocytes % (auto) 15.9 % (10.0-50.0); Mean Corpuscular Hemoglobin 26.5 pg (28.0-32.0); Mean Corpuscular Hgb Conc. 33.9 g/dL (32.0-36.0); Mean Corpuscular Volume 78.3 fL (80.0-100.0); Monocytes # (auto) 0.8 10 ^3/uL (0-1.3); Monocytes % (auto) 10.5 % (0.0-12.0); Neutrophils # (auto) 5.3 10 ^3/uL (1.6-8.6); Neutrophils % (auto) 69.5 % (37.0-80.0); Red Blood Cells 3.31 10^6/uL (4.5-5.90); White Blood Cell 7.6 10^3/uL (4.4-10.8)
[2020-03-31 06:43] LABS: Red Cell Distribution Width 21.6 % (11.8-14.3)
[2020-03-31 06:46] LABS: Potassium 4.3 mmol/L (3.5-5.1)
[2020-03-31 06:56] LABS: Albumin 1.7 g/dL (3.4-5.0); BUN/Creatinine Ratio 18.2; Bilirubin, Total 1.7 mg/dL (0.2-1.0); Calcium 7.9 mg/dL (8.5-10.1); Total Protein 7.3 g/dL (6.4-8.2)
[2020-03-31 08:00] VITALS: BP 150/76
[2020-03-31] MEDS ORDERED: cefTRIAXone 1GM/50ML D5W 50 ML IV SCH (09:00)
[2020-03-31] MEDS: ZINC SULFATE 220mg CAP or TAB PO SCH (09:10)
[2020-03-31] MEDS: APIXABAN 5 MG TAB PO SCH (09:10)
[2020-03-31] MEDS: ASPirin 81 mg TAB PO SCH (09:10)
[2020-03-31] MEDS: PANTOPRAZOLE 40 MG/10 ML VIAL INJ IV SCH (09:11)
[2020-03-31] MEDS: METOPROLOL TARTRATE 25 MG TAB GT SCH (09:11)
[2020-03-31] MEDS ORDERED: ATOR20TA50 PO (09:51)
[2020-03-31] MEDS ORDERED: MET25T GT (09:51)
[2020-03-31] MEDS ORDERED: PANT40TA2 PO (09:51)
[2020-03-31] MEDS ORDERED: APIX5TAB PO (09:51)
[2020-03-31] MEDS ORDERED: amLODIPine BESYLATE 5 MG TAB PO SCH (10:00)
[2020-03-31] MEDS ORDERED: AMLO-496 PO (10:05)
[2020-03-31] MEDS ORDERED: CHOL20007 PO (10:13)
[2020-03-31 16:00] VITALS: BP 154/81
[2020-04-01] MEDS ORDERED: APIXABAN 5 MG TAB PO SCH (10:00)
== END 2020-03-31 17:35 | disposition home health service (06) | DRG 870 ==
LOC: EDBD 18:32 → ER 18:34 → TELE 18:35 → DOU IN ICU 03-20 22:30 → TELE-WESTW 03-22 18:39
PROVIDERS: ADMIT Internal Medicine; ATTEND Internal Medicine
PROC: 5A1955Z Respiratory Ventilation, Greater than 96 Consecutive Hours (ICD-10-PCS; principal; 2020-03-03)
PROC: 0BH17EZ Insertion of Endotracheal Airway into Trachea, Via Natural or Artificial Opening (ICD-10-PCS; 2020-03-03)
PROC: XW033E5 Introduction of Remdesivir Anti-infective into Peripheral Vein, Percutaneous Approach, New Technology Group 5 (ICD-10-PCS; 2020-03-03)
PROC: 5A09357 Assistance with Respiratory Ventilation, Less than 24 Consecutive Hours, Continuous Positive Airway Pressure (ICD-10-PCS; 2020-03-03)
PROC: XW13325 Transfusion of Convalescent Plasma (Nonautologous) into Peripheral Vein, Percutaneous Approach, New Technology Group 5 (ICD-10-PCS; 2020-03-04)
PROC: 30233K1 Transfusion of Nonautologous Frozen Plasma into Peripheral Vein, Percutaneous Approach (ICD-10-PCS; 2020-03-06)
PROC: 30233N1 Transfusion of Nonautologous Red Blood Cells into Peripheral Vein, Percutaneous Approach (ICD-10-PCS; 2020-03-12)
DX: A41.89 Other specified sepsis (principal); R65.21 Severe sepsis with septic shock; U07.1 COVID-19; J96.01 Acute respiratory failure with hypoxia; N17.0 Acute kidney failure with tubular necrosis; E43 Unspecified severe protein-calorie malnutrition; K72.00 Acute and subacute hepatic failure without coma; J12.82 Pneumonia due to coronavirus disease 2019; E87.1 Hypo-osmolality and hyponatremia; N18.4 Chronic kidney disease, stage 4 (severe); E87.2 Acidosis; D68.9 Coagulation defect, unspecified; E87.0 Hyperosmolality and hypernatremia; I82.412 Acute embolism and thrombosis of left femoral vein; I82.432 Acute embolism and thrombosis of left popliteal vein; Z66 Do not resuscitate; E11.65 Type 2 diabetes mellitus with hyperglycemia; N20.0 Calculus of kidney; E66.9 Obesity, unspecified; I12.9 Hypertensive chronic kidney disease with stage 1 through stage 4 chronic kidney disease, or unspecified chronic kidney disease; B19.20 Unspecified viral hepatitis C without hepatic coma; D63.8 Anemia in other chronic diseases classified elsewhere; E11.22 Type 2 diabetes mellitus with diabetic chronic kidney disease; E11.40 Type 2 diabetes mellitus with diabetic neuropathy, unspecified; E87.5 Hyperkalemia; I27.20 Pulmonary hypertension, unspecified; I48.91 Unspecified atrial fibrillation; Z79.01 Long term (current) use of anticoagulants; Z86.19 Personal history of other infectious and parasitic diseases; Z86.711 Personal history of pulmonary embolism; Z68.32 Body mass index [BMI] 32.0-32.9, adult
CPT/HCPCS: 36415; 36600; 51702; 70450; 71045; 73200; 74176; 76705; 80048; 80053; 80074; 80076; 81001; 82040; 82150; 82728; 82805; 82962; 83036; 83605; 83615; 83690; 83735; 84100; 84443; 84478; 84484; 84550; 85007; 85025; 85027; 85379; 85610; 85652; 85730; 86141; 86850; 86900; 86901; 86920; 87040; 87081; 87426; 92610; 93005; 93306; 93970; 93971; 94002; 94003; 94640; 96374; 96375; 97110; 97530; 99291; A4615; C9113; G0378; J0330; J0696; J1100; J1815; J2185; J2250; J2543; J3430; J3480; J3490; J7042; J7060; P9047